=== PATIENT | male | born 1960 | race Caucasian/White ===

== ENCOUNTER 2017-05-05 14:00 | Inpatient (IN) | payer MEDICAID ==
[~2017-05-05] VITALS: Ht 170.2 cm; Wt 89.5 kg
[~2017-05-05 14:00] MED LIST: ALBU8.5H5 INH; ASPI-496 PO; ATOR40TA PO; ATOR40TA78 PO; CARV12.52 PO; CARV3.1212 PO; CARV3.122 PO; CARV6.252 PO; CEFD300C37 PO; DIGO125T PO; ENOX80SY5 SQ; FERR325T18 PO; FURO-93 PO; FURO40TA6 PO; GLIM1TAB2 PO; HYDR-3237 PO; LEVO25TA2 PO; LEVO50TA5 PO; LISI-167 PO; LISI2.5T PO; METF10002 PO; NITR0.4T SL; ONDA4TAB10 PO; POTA10TA5 PO; POTASSIUM CHLORIDE PO; PRED5TAB PO; SIMV20TA PO; SPIR25TA3 PO; TICA90TA PO; WARF10TA6 PO-COUM; WARF1TAB PO; WARF2.5T PO; WARF2TAB7 PO; WARF3TAB PO
[2017-05-05 14:29] LABS: HEMATOCRIT 34.4 % (39.2-51.8); HEMOGLOBIN 11.3 g/dL (13.7-18.0); WHITE BLOOD COUNT 9.1 x10^3/uL (3.4-10)
[2017-05-05] MEDS ORDERED: ASPIRIN 81 MG TABLET CHEW PO ONE (14:30)
[2017-05-05] MEDS ORDERED: SODIUM CHLORIDE FLUSH 10ML SYR IVF ONE ×2 (14:30→15:00)
[2017-05-05 14:43] LABS: BLOOD UREA NITROGEN 24 mg/dL (7-18)
[2017-05-05 14:52] LABS: ASPARTATE AMINO TRANSFERASE 1501 U/L (15-37); IS PT STATUS REG ER OR PRE ER? YES
[2017-05-05] MEDS ORDERED: NITROGLYCERIN SINGLE TAB 0.4 MG SL PRN (15:00)
[2017-05-05] MEDS ORDERED: MORPHINE SULFATE 4 MG/ML, 1ML IVPush PRN (15:00)
[2017-05-05] MEDS ORDERED: NITROGLYCERIN SINGLE TAB 0.4 MG SL ONE (15:12)
[2017-05-05] MEDS ORDERED: ASPIRIN 81 MG TABLET CHEW ONE (15:12)
[2017-05-05] MEDS ORDERED: MORPHINE SULFATE 4 MG/ML, 1ML ONE (15:13)
[2017-05-05] MEDS ORDERED: OMNIPAQUE 350 MG/ML, 100ML BOTTLE ONE (15:51)
[2017-05-05] MEDS ORDERED: LORazepam 1MG TABLET PO PRN (19:30)
[2017-05-05] MEDS ORDERED: POLYETHYLENE GLYCOL 17 GM PACKET PO PRN (19:30)
[2017-05-05] MEDS ORDERED: morphine SULFATE 10 MG/ML, 1ML IVPush PRN (19:30)
[2017-05-05] MEDS ORDERED: DOCUSATE 100 MG CAPSULE PO PRN (19:30)
[2017-05-05] MEDS ORDERED: ENOXAPARIN 40 MG/0.4 ML SQ SCH (19:30)
[2017-05-05] MEDS ORDERED: GUAIFENESIN/DM 200-20MG, 10ML UDC PO PRN (19:30)
[2017-05-05] MEDS ORDERED: NITROGLYCERIN 0.4 MG BOTTLE (25 TABS) SL SCH (19:30)
[2017-05-05] MEDS ORDERED: ACETAMINOPHEN 325 MG TABLET PO PRN (19:30)
[2017-05-05] MEDS ORDERED: ENOXAPARIN 40 MG/0.4 ML ONE (19:43)
[2017-05-05] MEDS ORDERED: FUROSEMIDE 40 MG/4 ML ONE (19:43)
[2017-05-05] MEDS: FUROSEMIDE 40 MG/4 ML IV SCH (19:45)
[2017-05-05 21:27] VITALS: BP 117/77
[2017-05-05] MEDS: ATORVASTATIN 40 MG TABLET PO SCH (21:56)
[2017-05-05] MEDS: CARVEDILOL 6.25 MG TABLET PO SCH (21:56)
[2017-05-05] MEDS: SODIUM CHLORIDE FLUSH 10ML SYR IVF SCH (21:57)
[2017-05-05] MEDS ORDERED: ALBUTEROL SULFATE 2.5 MG/3 ML NPPB PRN (22:30)
[2017-05-06] MEDS: INSULIN ASPART 100 UNITS/ML, PEN SQ-INSULIN SCH ×5 (00:06→20:14)
[2017-05-06] MEDS ORDERED: MAGNESIUM SULFATE PMX 2GM/50ML 50 ML IV ONE (00:30)
[2017-05-06 01:29] VITALS: BP 100/70
[2017-05-06 05:20] LABS: ASPARTATE AMINO TRANSFERASE 988 U/L (15-37); BLOOD UREA NITROGEN 28 mg/dL (7-18)
[2017-05-06 05:33] LABS: IS PT STATUS REG ER OR PRE ER? NO
[2017-05-06] MEDS: HYDROcodone/APAP 5/325 TABLET PO PRN ×4 (05:36→18:45)
[2017-05-06] MEDS: FUROSEMIDE 40 MG/4 ML IV SCH ×2 (08:27→16:58)
[2017-05-06 08:29] VITALS: BP 93/67
[2017-05-06] MEDS: SODIUM CHLORIDE FLUSH 10ML SYR IVF SCH ×2 (08:33→20:14)
[2017-05-06] MEDS ORDERED: SPIRONOLACTONE 25 MG TABLET PO SCH (09:00)
[2017-05-06] MEDS: DIGOXIN 0.125 MG TABLET PO SCH (09:28)
[2017-05-06] MEDS: LISINOPRIL 10 MG TABLET PO SCH (09:28)
[2017-05-06] MEDS: LEVOTHYROXINE 50 MCG TABLET PO SCH (09:28)
[2017-05-06] MEDS: CARVEDILOL 6.25 MG TABLET PO SCH ×3 (09:28→20:18)
[2017-05-06] MEDS: ASPIRIN 81 MG TABLET EC PO SCH (09:28)
[2017-05-06] MEDS: SENNA/DOCUSATE TABLET PO SCH (09:30)
[2017-05-06] MEDS ORDERED: [UNRECOGNIZED DRUG - REMARK] MC SCH (12:00)
[2017-05-06] MEDS ORDERED: [UNRECOGNIZED DRUG - REMARK] MC SCH (14:00)
[2017-05-06 14:11] VITALS: BP 91/54
[2017-05-06] MEDS: POTASSIUM CHLORIDE 20 MEQ TAB.ER.PRT PO SCH (16:58)
[2017-05-06] MEDS: ATORVASTATIN 40 MG TABLET PO SCH (20:14)
[2017-05-06 20:32] VITALS: BP 80/42
[2017-05-07] VITALS: BP 92/61
[2017-05-07] MEDS: HYDROcodone/APAP 5/325 TABLET PO PRN ×4 (01:47→22:32)
[2017-05-07 04:39] LABS: HEMATOCRIT 29.3 % (39.2-51.8); HEMOGLOBIN 9.7 g/dL (13.7-18.0)
[2017-05-07 04:50] LABS: BLOOD UREA NITROGEN 39 mg/dL (7-18)
[2017-05-07 04:58] LABS: ASPARTATE AMINO TRANSFERASE 730 U/L (15-37)
[2017-05-07] MEDS: INSULIN ASPART 100 UNITS/ML, PEN SQ-INSULIN SCH ×4 (07:00→22:23)
[2017-05-07] MEDS ORDERED: FUROSEMIDE 40 MG/4 ML IV SCH (07:30)
[2017-05-07 08:00] VITALS: BP 97/63
[2017-05-07] MEDS ORDERED: FUROSEMIDE 20 MG/2 ML IV SCH (09:30)
[2017-05-07] MEDS: SENNA/DOCUSATE TABLET PO SCH (10:13)
[2017-05-07] MEDS: LEVOTHYROXINE 50 MCG TABLET PO SCH (10:13)
[2017-05-07] MEDS: ASPIRIN 81 MG TABLET EC PO SCH (10:13)
[2017-05-07] MEDS: LISINOPRIL 10 MG TABLET PO SCH (10:14)
[2017-05-07] MEDS: DIGOXIN 0.125 MG TABLET PO SCH (10:14)
[2017-05-07] MEDS: CARVEDILOL 6.25 MG TABLET PO SCH ×2 (10:14→22:22)
[2017-05-07] MEDS: SODIUM CHLORIDE FLUSH 10ML SYR IVF SCH ×2 (10:18→22:23)
[2017-05-07 14:12] VITALS: BP 94/66
[2017-05-07] MEDS: POTASSIUM CHLORIDE 20 MEQ TAB.ER.PRT PO SCH (16:53)
[2017-05-07] MEDS: WARFARIN 3 MG TABLET PO-COUM SCH (16:53)
[2017-05-07 20:00] VITALS: BP 88/60
[2017-05-07] MEDS: ATORVASTATIN 40 MG TABLET PO SCH (22:23)
[2017-05-08 02:00] VITALS: BP 98/65
[2017-05-08] MEDS: HYDROcodone/APAP 5/325 TABLET PO PRN ×3 (05:17→16:30)
[2017-05-08 05:34] LABS: BLOOD UREA NITROGEN 49 mg/dL (7-18)
[2017-05-08 05:45] LABS: ASPARTATE AMINO TRANSFERASE 494 U/L (15-37)
[2017-05-08] MEDS: INSULIN ASPART 100 UNITS/ML, PEN SQ-INSULIN SCH ×4 (07:00→20:14)
[2017-05-08 07:26] VITALS: BP 105/68
[2017-05-08] MEDS ORDERED: FUROSEMIDE 20 MG TABLET PO SCH (07:30)
[2017-05-08] MEDS: LEVOTHYROXINE 50 MCG TABLET PO SCH (07:50)
[2017-05-08] MEDS: LISINOPRIL 10 MG TABLET PO SCH (07:50)
[2017-05-08] MEDS: DIGOXIN 0.125 MG TABLET PO SCH (07:51)
[2017-05-08] MEDS: ASPIRIN 81 MG TABLET EC PO SCH (07:51)
[2017-05-08] MEDS: CARVEDILOL 6.25 MG TABLET PO SCH ×2 (07:51→20:14)
[2017-05-08] MEDS: SODIUM CHLORIDE FLUSH 10ML SYR IVF SCH ×2 (07:51→20:14)
[2017-05-08] MEDS: SENNA/DOCUSATE TABLET PO SCH (07:52)
[2017-05-08] MEDS ORDERED: SODIUM CHLORIDE 0.9%, 500ML IV ONE (09:00)
[2017-05-08 14:34] VITALS: BP 95/60
[2017-05-08] MEDS: POTASSIUM CHLORIDE 20 MEQ TAB.ER.PRT PO SCH (16:30)
[2017-05-08] MEDS: WARFARIN 3 MG TABLET PO-COUM SCH (16:31)
[2017-05-08] MEDS: ONDANSETRON 2MG/ML, 2ML IVPush PRN (16:38)
[2017-05-08 20:01] VITALS: BP 99/56
[2017-05-08] MEDS: ATORVASTATIN 40 MG TABLET PO SCH (20:14)
[2017-05-09 02:30] VITALS: BP 93/63
[2017-05-09] MEDS: HYDROcodone/APAP 5/325 TABLET PO PRN ×4 (02:32→20:37)
[2017-05-09 05:50] LABS: ASPARTATE AMINO TRANSFERASE 316 U/L (15-37); BLOOD UREA NITROGEN 52 mg/dL (7-18)
[2017-05-09] MEDS: INSULIN ASPART 100 UNITS/ML, PEN SQ-INSULIN SCH ×4 (07:00→20:38)
[2017-05-09 07:55] VITALS: BP 86/61
[2017-05-09] MEDS: SENNA/DOCUSATE TABLET PO SCH (09:00)
[2017-05-09] MEDS: CARVEDILOL 6.25 MG TABLET PO SCH ×2 (09:24→20:37)
[2017-05-09] MEDS: LEVOTHYROXINE 50 MCG TABLET PO SCH (09:25)
[2017-05-09] MEDS: ASPIRIN 81 MG TABLET EC PO SCH (09:25)
[2017-05-09] MEDS: DIGOXIN 0.125 MG TABLET PO SCH (09:25)
[2017-05-09 13:20] VITALS: BP 100/69
[2017-05-09] MEDS ORDERED: NICOTINE 14MG/24 HR PATCH.TD24 TD ONE (15:30)
[2017-05-09] MEDS: DOBUTAMINE/D5W PMX 250 ML IV SCH (17:59)
[2017-05-09] MEDS: SODIUM CHLORIDE FLUSH 10ML SYR IVF SCH ×2 (18:00→20:37)
[2017-05-09] MEDS ORDERED: WARFARIN 5 MG TABLET PO-COUM ONE (18:00)
[2017-05-09 19:50] VITALS: BP 117/79
[2017-05-09] MEDS: ATORVASTATIN 40 MG TABLET PO SCH (20:37)
[2017-05-10 02:23] VITALS: BP 91/64
[2017-05-10] MEDS: HYDROcodone/APAP 5/325 TABLET PO PRN ×5 (03:04→22:00)
[2017-05-10] MEDS: ONDANSETRON 2MG/ML, 2ML IVPush PRN (04:59)
[2017-05-10 05:31] LABS: HEMATOCRIT 32.6 % (39.2-51.8); HEMOGLOBIN 10.9 g/dL (13.7-18.0); WHITE BLOOD COUNT 6.3 x10^3/uL (3.4-10)
[2017-05-10 05:40] LABS: BLOOD UREA NITROGEN 50 mg/dL (7-18)
[2017-05-10 05:57] LABS: TOTAL IRON BINDING CAPACITY 262 mcg/dL (250-450)
[2017-05-10 07:30] VITALS: BP 111/76
[2017-05-10] MEDS: INSULIN ASPART 100 UNITS/ML, PEN SQ-INSULIN SCH ×4 (08:21→22:00)
[2017-05-10] MEDS: SODIUM CHLORIDE FLUSH 10ML SYR IVF SCH ×2 (08:22→22:00)
[2017-05-10] MEDS: CARVEDILOL 6.25 MG TABLET PO SCH (08:22)
[2017-05-10] MEDS: ASPIRIN 81 MG TABLET EC PO SCH (08:23)
[2017-05-10] MEDS: LEVOTHYROXINE 50 MCG TABLET PO SCH (08:23)
[2017-05-10] MEDS: SENNA/DOCUSATE TABLET PO SCH (08:23)
[2017-05-10 09:57] VITALS: BP 88/58
[2017-05-10] MEDS: FUROSEMIDE 20 MG/2 ML IV SCH ×2 (10:07→17:27)
[2017-05-10 10:50] VITALS: BP 105/74
[2017-05-10 13:15] VITALS: BP 102/65
[2017-05-10 14:11] LABS: FERRITIN 649.3 ng/mL (26-388)
[2017-05-10] MEDS: NICOTINE 14MG/24 HR PATCH.TD24 TD SCH (17:56)
[2017-05-10] MEDS ORDERED: WARFARIN 5 MG TABLET PO-COUM ONE (18:00)
[2017-05-10 21:55] VITALS: BP 95/62
[2017-05-10] MEDS: ATORVASTATIN 40 MG TABLET PO SCH (21:59)
[2017-05-11 01:20] VITALS: BP 86/56
[2017-05-11] MEDS: FUROSEMIDE 20 MG/2 ML IV SCH ×2 (01:33→07:43)
[2017-05-11] MEDS: HYDROcodone/APAP 5/325 TABLET PO PRN ×4 (02:52→20:11)
[2017-05-11 06:08] LABS: HEMATOCRIT 33.8 % (39.2-51.8); HEMOGLOBIN 11.1 g/dL (13.7-18.0); WHITE BLOOD COUNT 6.5 x10^3/uL (3.4-10)
[2017-05-11 06:18] LABS: ASPARTATE AMINO TRANSFERASE 154 U/L (15-37); BLOOD UREA NITROGEN 45 mg/dL (7-18)
[2017-05-11 06:57] VITALS: BP 101/67
[2017-05-11] MEDS: INSULIN ASPART 100 UNITS/ML, PEN SQ-INSULIN SCH ×4 (07:00→20:01)
[2017-05-11] MEDS: SODIUM CHLORIDE FLUSH 10ML SYR IVF SCH ×2 (07:43→20:11)
[2017-05-11] MEDS: ASPIRIN 81 MG TABLET EC PO SCH (07:43)
[2017-05-11] MEDS: DOBUTAMINE/D5W PMX 250 ML IV SCH (07:44)
[2017-05-11] MEDS: LEVOTHYROXINE 50 MCG TABLET PO SCH (07:44)
[2017-05-11] MEDS: SENNA/DOCUSATE TABLET PO SCH (07:44)
[2017-05-11 14:04] VITALS: BP 119/77
[2017-05-11] MEDS ORDERED: FUROSEMIDE 40 MG TABLET PO SCH (17:00)
[2017-05-11] MEDS: CARVEDILOL 3.125 MG TABLET PO SCH (17:15)
[2017-05-11] MEDS: NICOTINE 14MG/24 HR PATCH.TD24 TD SCH (17:15)
[2017-05-11] MEDS ORDERED: WARFARIN 5 MG TABLET PO-COUM ONE (18:00)
[2017-05-11 19:29] VITALS: BP 110/77
[2017-05-11] MEDS: ATORVASTATIN 40 MG TABLET PO SCH (20:11)
[2017-05-12 01:37] VITALS: BP 123/80
[2017-05-12] MEDS: HYDROcodone/APAP 5/325 TABLET PO PRN ×4 (03:37→17:08)
[2017-05-12 06:06] LABS: HEMATOCRIT 33.9 % (39.2-51.8); HEMOGLOBIN 11.4 g/dL (13.7-18.0); WHITE BLOOD COUNT 6.8 x10^3/uL (3.4-10)
[2017-05-12 06:27] LABS: ASPARTATE AMINO TRANSFERASE 110 U/L (15-37); BLOOD UREA NITROGEN 34 mg/dL (7-18)
[2017-05-12] MEDS: ASPIRIN 81 MG TABLET EC PO SCH (07:47)
[2017-05-12] MEDS: LEVOTHYROXINE 50 MCG TABLET PO SCH (07:47)
[2017-05-12] MEDS: CARVEDILOL 3.125 MG TABLET PO SCH ×2 (07:48→17:07)
[2017-05-12] MEDS: FUROSEMIDE 40 MG TABLET PO SCH ×2 (07:48→17:07)
[2017-05-12] MEDS: INSULIN ASPART 100 UNITS/ML, PEN SQ-INSULIN SCH ×4 (07:50→20:08)
[2017-05-12] MEDS: SODIUM CHLORIDE FLUSH 10ML SYR IVF SCH ×2 (07:51→20:07)
[2017-05-12 08:12] VITALS: BP 107/78
[2017-05-12] MEDS: SENNA/DOCUSATE TABLET PO SCH (09:00)
[2017-05-12] MEDS: LISINOPRIL 5 MG TABLET PO SCH (10:01)
[2017-05-12] MEDS: NICOTINE 14MG/24 HR PATCH.TD24 TD SCH (12:23)
[2017-05-12 15:01] VITALS: BP 100/68
[2017-05-12] MEDS ORDERED: WARFARIN 3 MG TABLET PO-COUM ONE (18:00)
[2017-05-12 19:22] VITALS: BP 109/75
[2017-05-12] MEDS: ATORVASTATIN 40 MG TABLET PO SCH (20:07)
[2017-05-13] MEDS: HYDROcodone/APAP 5/325 TABLET PO PRN ×3 (00:26→12:34)
[2017-05-13 00:44] VITALS: BP 107/70
[2017-05-13 05:37] VITALS: BP 116/80
[2017-05-13] MEDS: CARVEDILOL 3.125 MG TABLET PO SCH (05:40)
[2017-05-13 05:54] LABS: HEMATOCRIT 37.9 % (39.2-51.8); HEMOGLOBIN 12.4 g/dL (13.7-18.0); WHITE BLOOD COUNT 6.9 x10^3/uL (3.4-10)
[2017-05-13 06:16] LABS: ASPARTATE AMINO TRANSFERASE 86 U/L (15-37); BLOOD UREA NITROGEN 26 mg/dL (7-18)
[2017-05-13] MEDS: INSULIN ASPART 100 UNITS/ML, PEN SQ-INSULIN SCH ×3 (07:00→16:06)
[2017-05-13 07:35] VITALS: BP 106/72
[2017-05-13] MEDS ORDERED: HOLD COUMADIN MC PRN (08:00)
[2017-05-13] MEDS: FUROSEMIDE 40 MG TABLET PO SCH ×2 (08:26→16:07)
[2017-05-13] MEDS: LISINOPRIL 5 MG TABLET PO SCH (08:27)
[2017-05-13] MEDS: SENNA/DOCUSATE TABLET PO SCH (08:27)
[2017-05-13] MEDS: ASPIRIN 81 MG TABLET EC PO SCH (08:27)
[2017-05-13] MEDS: LEVOTHYROXINE 50 MCG TABLET PO SCH (08:28)
[2017-05-13] MEDS: SODIUM CHLORIDE FLUSH 10ML SYR IVF SCH (08:28)
[2017-05-13] MEDS: NICOTINE 14MG/24 HR PATCH.TD24 TD SCH (12:34)
[2017-05-13 12:54] VITALS: BP 106/73
[2017-05-13] MEDS ORDERED: CARV3.1212 PO (13:22)
[2017-05-13] MEDS ORDERED: LISI5TAB7 PO (13:22)
[2017-05-13] MEDS ORDERED: FURO40TA6 PO (13:22)
[2017-05-13] MEDS ORDERED: GLIP5TAB10 PO (13:22)
== END 2017-05-13 16:15 | disposition home or self-care (01) | DRG 292 ==
LOC: ED 16:48 → SUATTDRO 19:03 → EDIP 19:15 → 5SO 21:06
PROVIDERS: ADMIT Family Medicine; ATTEND Family Medicine
DX: I11.0 Hypertensive heart disease with heart failure (principal); E87.1 Hypo-osmolality and hyponatremia; N17.9 Acute kidney failure, unspecified; D68.69 Other thrombophilia; E86.1 Hypovolemia; E11.65 Type 2 diabetes mellitus with hyperglycemia; K76.1 Chronic passive congestion of liver; I25.10 Atherosclerotic heart disease of native coronary artery without angina pectoris; E78.5 Hyperlipidemia, unspecified; E03.9 Hypothyroidism, unspecified; Z66 Do not resuscitate; D64.9 Anemia, unspecified; I25.5 Ischemic cardiomyopathy; I50.43 Acute on chronic combined systolic (congestive) and diastolic (congestive) heart failure; E66.9 Obesity, unspecified; J44.9 Chronic obstructive pulmonary disease, unspecified; T50.2X5A Adverse effect of carbonic-anhydrase inhibitors, benzothiadiazides and other diuretics, initial encounter; Y92.89 Other specified places as the place of occurrence of the external cause; Z79.01 Long term (current) use of anticoagulants; Z79.899 Other long term (current) drug therapy; Z80.9 Family history of malignant neoplasm, unspecified; Z86.711 Personal history of pulmonary embolism; Z87.891 Personal history of nicotine dependence; Z91.19 Patient's noncompliance with other medical treatment and regimen; Z95.5 Presence of coronary angioplasty implant and graft; Z95.810 Presence of automatic (implantable) cardiac defibrillator; Z68.30 Body mass index [BMI] 30.0-30.9, adult
CPT/HCPCS: 36415; 71010; 71275; 76700; 80048; 80053; 80162; 82533; 82570; 82728; 82962; 83036; 83540; 83550; 83735; 83880; 83930; 83935; 84100; 84300; 84439; 84443; 84481; 84484; 85025; 85045; 85610; 85730; 86704; 86706; 86708; 86803; 87340; 93005; 93306; 93970; 96372; 96374; J1650; J1815; J1940; J2405; Q9967; J1250; J3475; J7040

== ENCOUNTER 2017-05-18 03:26 | Emergency (ER) | payer MEDICAID ==
[~2017-05-18] VITALS: Ht 170.2 cm; Wt 82.0 kg
[~2017-05-18 03:26] MED LIST changes: +GLIP5TAB10 PO; +LISI5TAB7 PO
[2017-05-18] MEDS ORDERED: MORPHINE SULFATE 4 MG/ML, 1ML ONE (03:49)
[2017-05-18] MEDS ORDERED: ONDANSETRON 2MG/ML, 2ML ONE (03:49)
[2017-05-18] MEDS ORDERED: LORazepam 2 MG/ML, 1ML ONE (03:50)
[2017-05-18] MEDS ORDERED: LORazepam 2 MG/ML, 1ML IVPush ONE (04:00)
[2017-05-18] MEDS ORDERED: MORPHINE SULFATE 4 MG/ML, 1ML IVPush PRN (04:00)
[2017-05-18] MEDS ORDERED: SODIUM CHLORIDE FLUSH 10ML SYR IVF ONE (04:00)
[2017-05-18] MEDS ORDERED: ONDANSETRON 2MG/ML, 2ML IVPush ONE (04:00)
[2017-05-18 04:09] LABS: HEMATOCRIT 39.7 % (39.2-51.8); HEMOGLOBIN 13.1 g/dL (13.7-18.0); WHITE BLOOD COUNT 12.1 x10^3/uL (3.4-10)
[2017-05-18 04:22] LABS: BLOOD UREA NITROGEN 18 mg/dL (7-18)
[2017-05-18 04:26] LABS: ASPARTATE AMINO TRANSFERASE 39 U/L (15-37)
[2017-05-18] MEDS ORDERED: OMNIPAQUE 350 MG/ML, 100ML BOTTLE ONE (04:48)
[2017-05-18] MEDS ORDERED: MAGNESIUM CITRATE 300ML ORAL SOL PO ONE (05:30)
[2017-05-18 06:19] VITALS: BP 121/80
== END 2017-05-18 06:56 | disposition home or self-care (01) ==
LOC: ED 03:49
DX: K59.00 Constipation, unspecified (principal); E03.9 Hypothyroidism, unspecified; E11.65 Type 2 diabetes mellitus with hyperglycemia; E78.5 Hyperlipidemia, unspecified; I50.9 Heart failure, unspecified; J44.9 Chronic obstructive pulmonary disease, unspecified; I48.91 Unspecified atrial fibrillation; I48.92 Unspecified atrial flutter; I25.10 Atherosclerotic heart disease of native coronary artery without angina pectoris; I11.9 Hypertensive heart disease without heart failure; Z95.5 Presence of coronary angioplasty implant and graft; Z95.0 Presence of cardiac pacemaker
CPT/HCPCS: 36415; 74177; 80053; 83605; 83690; 85025; 96374; 96375; 99285; J2060; J2405; Q9967

== ENCOUNTER 2017-12-07 22:06 | Inpatient (IN) | payer MEDICAID ==
[~2017-12-07] VITALS: Ht 170.2 cm; Wt 88.8 kg
[~2017-12-07 22:06] MED LIST changes: +METF500T4 PO
[2017-12-07] MEDS ORDERED: ONDANSETRON ODT 4 MG ONE (22:21)
[2017-12-07 22:22] LABS: BASOPHILS # (AUTO) 0.04 x10^3/uL (0-0.1); BASOPHILS % (AUTO) 1 % (0-1); EOSINOPHILS # (AUTO) 0.38 x10^3/uL (0-0.4); EOSINOPHILS % (AUTO) 5 % (1-7); LYMPHOCYTES # (AUTO) 2.45 x10^3/uL (1-3.4); LYMPHOCYTES % (AUTO) 29 % (22-44); MD NO; MEAN CORPUSCULAR HEMOGLOBIN 31.1 pg (27.5-34.5); MEAN CORPUSCULAR HGB CONC 34.4 g/dL (33.2-36.2); MEAN CORPUSCULAR VOLUME 90.4 fL (81-97); MEAN PLATELET VOLUME 7.9 fL (7.4-10.4); MONOCYTES # (AUTO) 0.76 x10^3/uL (0.2-0.8); MONOCYTES % (AUTO) 9 % (2-9); NEUTROPHILS # (AUTO) 4.81 x10^3/uL (1.8-6.8); NEUTROPHILS % (AUTO) 57 % (42-75); PLATELET COUNT 268 x10^3/uL (130-400); RED BLOOD COUNT 4.58 x10^6/uL (4.38-5.82); RED CELL DISTRIBUTION WIDTH 14.2 % (9.4-14.8)
[2017-12-07] MEDS ORDERED: MORPHINE SULFATE 4 MG/ML, 1ML ONE ×2 (22:22→22:57)
[2017-12-07 22:28] LABS: INTERNATIONAL NORMALIZED RATIO 0.97 (0.93-1.1)
[2017-12-07] MEDS ORDERED: ONDANSETRON ODT 4 MG PO ONE (22:30)
[2017-12-07] MEDS ORDERED: morphine SULFATE 10 MG/ML, 1ML IVPush ONE ×2 (22:30→23:00)
[2017-12-07] MEDS ORDERED: DIPHENHYDRAMINE 50 MG/ML, 1ML ONE (22:57)
[2017-12-07] MEDS ORDERED: DIPHENHYDRAMINE 50 MG/ML, 1ML IVPush ONE (23:00)
[2017-12-08] MEDS ORDERED: SODIUM CHLORIDE 0.9%, 500ML IVBOLUS ONE ×2 (00:30→02:00)
[2017-12-08] MEDS ORDERED: SODIUM CHLORIDE 0.9% 1,000 ML IV SCH (00:39)
[2017-12-08] MEDS ORDERED: NICOTINE 21 MG/24 HR PATCH.TD24 TD SCH (01:00)
[2017-12-08] MEDS ORDERED: GLUCAGON 1 MG IM PRN (01:00)
[2017-12-08] MEDS ORDERED: ACETAMINOPHEN 325 MG TABLET PO PRN (01:00)
[2017-12-08] MEDS ORDERED: DEXTROSE 50%, 50ML SYRINGE IVPush PRN (01:00)
[2017-12-08] MEDS ORDERED: DEXTROSE 4 GM TAB.CHEW PO PRN (01:00)
[2017-12-08 01:39] LABS: ALBUMIN 3.9 g/dL (3.4-5.0); ANION GAP 8 mmol/L (5-15); CALCIUM 8.8 mg/dL (8.5-10.1); CHLORIDE 99 mmol/L (98-107); CREATININE 0.92 mg/dL (0.7-1.3)
[2017-12-08 01:44] LABS: TROPONIN I < 0.015 ng/mL (0.000-0.045)
[2017-12-08] MEDS ORDERED: HYDR-3245 PO (03:13)
[2017-12-08] MEDS: HYDROcodone/APAP 10/325 MG TABLET PO PRN ×2 (03:35→08:07)
[2017-12-08 03:45] VITALS: BP 113/67
[2017-12-08] MEDS: CARVEDILOL 3.125 MG TABLET PO SCH ×2 (06:04→18:00)
[2017-12-08 07:30] VITALS: BP 92/55
[2017-12-08] MEDS ORDERED: ASPIRIN 325 MG TABLET PO SCH (07:30)
[2017-12-08 07:48] LABS: TROPONIN I < 0.015 ng/mL (0.000-0.045)
[2017-12-08] MEDS ORDERED: FUROSEMIDE 80 MG TABLET PO SCH (08:00)
[2017-12-08] MEDS: INSULIN LISPRO 100 UNITS/ML, PEN SQ-INSULIN SCH ×3 (08:08→16:00)
[2017-12-08] MEDS: FUROSEMIDE 20 MG TABLET PO SCH ×2 (08:17→17:00)
[2017-12-08 08:18] VITALS: BP 90/54
[2017-12-08] MEDS ORDERED: LISINOPRIL 10 MG TABLET PO SCH (09:00)
[2017-12-08] MEDS ORDERED: metFORMIN 500 MG TABLET PO SCH (09:00)
[2017-12-08] MEDS ORDERED: LEVOTHYROXINE 50 MCG TABLET PO SCH (09:00)
[2017-12-08] MEDS ORDERED: SODIUM CHLORIDE FLUSH 10ML SYR IVF SCH (09:00)
[2017-12-08] MEDS ORDERED: REGADENOSON 0.4 MG/5 ML SYRINGE ONE (10:31)
[2017-12-08 13:49] VITALS: BP 95/60
[2017-12-08 14:20] VITALS: BP 94/58
[2017-12-08 14:36] VITALS: BP 95/61
[2017-12-08] MEDS ORDERED: ASPI325T17 PO (15:50)
[2017-12-08] MEDS ORDERED: PNEUMOCOCCAL 23 VACCINE IM-VACC ONE (17:00)
[2017-12-08] MEDS ORDERED: ATORVASTATIN 40 MG TABLET PO SCH (21:00)
== END 2017-12-08 18:16 | disposition home or self-care (01) | DRG 313 ==
LOC: ED 23:59 → SUATTDRO 12-08 00:34 → EDIP 12-08 01:19 → 5SO 12-08 02:51
PROVIDERS: ADMIT Hospitalist; ATTEND Hospitalist
DX: R07.89 Other chest pain (principal); I25.10 Atherosclerotic heart disease of native coronary artery without angina pectoris; I11.0 Hypertensive heart disease with heart failure; E11.65 Type 2 diabetes mellitus with hyperglycemia; I50.82 Biventricular heart failure; I50.42 Chronic combined systolic (congestive) and diastolic (congestive) heart failure; G47.00 Insomnia, unspecified; F17.210 Nicotine dependence, cigarettes, uncomplicated; E78.5 Hyperlipidemia, unspecified; E03.9 Hypothyroidism, unspecified; I25.5 Ischemic cardiomyopathy; I25.2 Old myocardial infarction; I48.91 Unspecified atrial fibrillation; J44.9 Chronic obstructive pulmonary disease, unspecified; Z79.82 Long term (current) use of aspirin; Z80.9 Family history of malignant neoplasm, unspecified; Z82.49 Family history of ischemic heart disease and other diseases of the circulatory system; Z95.0 Presence of cardiac pacemaker; Z86.711 Personal history of pulmonary embolism; Z95.5 Presence of coronary angioplasty implant and graft; Z95.810 Presence of automatic (implantable) cardiac defibrillator; Z23 Encounter for immunization
CPT/HCPCS: 36415; 71045; 78452; 80047; 80048; 82040; 82962; 83735; 83880; 84100; 84484; 85025; 85610; 85730; 90732; 93005; 93017; 96374; 96375; 96376; J2785; Q0162; A9502; C9898; J1200; J2270; J7030; J7040

== ENCOUNTER 2018-02-28 19:59 | Emergency (ER) | payer MEDICAID ==
[~2018-02-28] VITALS: Ht 170.2 cm; Wt 91.4 kg
[~2018-02-28 19:59] MED LIST changes: +ASPI325T17 PO; +HYDR-3245 PO; -METF500T4 PO; +METF500T5 PO; +WARF10TA43 PO-COUM; -WARF10TA6 PO-COUM; -WARF2TAB7 PO; +WARF2TAB99 PO
[2018-02-28] MEDS ORDERED: ASPIRIN 81 MG TABLET CHEW ONE (20:21)
[2018-02-28] MEDS ORDERED: ASPIRIN 81 MG TABLET CHEW PO ONE (20:30)
[2018-02-28 20:36] LABS: BASOPHILS # (AUTO) 0.12 x10^3/uL (0-0.1); BASOPHILS % (AUTO) 2 % (0-1); EOSINOPHILS # (AUTO) 0.39 x10^3/uL (0-0.4); EOSINOPHILS % (AUTO) 5 % (1-7); LYMPHOCYTES # (AUTO) 1.88 x10^3/uL (1-3.4); LYMPHOCYTES % (AUTO) 24 % (22-44); MD NO; MEAN CORPUSCULAR HEMOGLOBIN 30.3 pg (27.5-34.5); MEAN CORPUSCULAR HGB CONC 34.1 g/dL (33.2-36.2); MEAN CORPUSCULAR VOLUME 88.9 fL (81-97); MEAN PLATELET VOLUME 8.4 fL (7.4-10.4); MONOCYTES # (AUTO) 0.68 x10^3/uL (0.2-0.8); MONOCYTES % (AUTO) 9 % (2-9); NEUTROPHILS # (AUTO) 4.65 x10^3/uL (1.8-6.8); NEUTROPHILS % (AUTO) 60 % (42-75); PLATELET COUNT 236 x10^3/uL (130-400); RED BLOOD COUNT 3.79 x10^6/uL (4.38-5.82)
[2018-02-28 20:48] LABS: ALBUMIN 4.4 g/dL (3.4-5.0); ANION GAP 9 mmol/L (5-15); CALCIUM 9.5 mg/dL (8.5-10.1); CHLORIDE 97 mmol/L (98-107); CREATININE 1.47 mg/dL (0.7-1.3)
[2018-02-28 20:51] LABS: TROPONIN I < 0.015 ng/mL (0.000-0.045)
[2018-02-28] MEDS ORDERED: MORPHINE SULFATE 4 MG/ML, 1ML IVPush PRN (21:00)
[2018-02-28] MEDS ORDERED: MORPHINE SULFATE 4 MG/ML, 1ML ONE (21:03)
[2018-02-28] MEDS ORDERED: SODIUM CHLORIDE 0.9% 1,000ML IVBOLUS ONE (23:00)
[2018-02-28] MEDS ORDERED: OMNIPAQUE 350 MG/ML, 100ML BOTTLE ONE (23:04)
[2018-03-01 01:24] VITALS: BP 106/76
== END 2018-03-01 01:27 | disposition home or self-care (01) ==
LOC: ED 21:11
DX: N28.9 Disorder of kidney and ureter, unspecified (principal); R07.2 Precordial pain; R06.00 Dyspnea, unspecified; I25.10 Atherosclerotic heart disease of native coronary artery without angina pectoris; I11.0 Hypertensive heart disease with heart failure; I50.9 Heart failure, unspecified; I48.91 Unspecified atrial fibrillation; E03.9 Hypothyroidism, unspecified; J18.9 Pneumonia, unspecified organism; E78.5 Hyperlipidemia, unspecified; Z86.711 Personal history of pulmonary embolism; J44.9 Chronic obstructive pulmonary disease, unspecified; Z95.818 Presence of other cardiac implants and grafts
CPT/HCPCS: 36415; 71045; 71275; 80048; 82040; 83880; 84484; 85025; 85379; 93005; 96374; 99285; Q9967

== ENCOUNTER 2018-03-09 06:05 | Inpatient (IN) | payer MEDICAID ==
[~2018-03-09] VITALS: Ht 170.2 cm; Wt 89.0 kg
[2018-03-09] MEDS ORDERED: SODIUM CHLORIDE FLUSH 10ML SYR IVF ONE (06:30)
[2018-03-09] MEDS ORDERED: ONDANSETRON 2MG/ML, 2ML IVPush ONE (06:30)
[2018-03-09] MEDS ORDERED: SODIUM CHLORIDE 0.9% 1,000ML IVBOLUS ONE (06:30)
[2018-03-09] MEDS ORDERED: ONDANSETRON 2MG/ML, 2ML ONE (06:42)
[2018-03-09] MEDS ORDERED: MORPHINE SULFATE 4 MG/ML, 1ML ONE ×2 (06:42→08:05)
[2018-03-09] MEDS: MORPHINE SULFATE 4 MG/ML, 1ML IVPush PRN ×2 (06:45→08:08)
[2018-03-09 06:53] LABS: BASOPHILS # (AUTO) 0.02 x10^3/uL (0-0.1); BASOPHILS % (AUTO) 0 % (0-1); EOSINOPHILS # (AUTO) 0.18 x10^3/uL (0-0.4); EOSINOPHILS % (AUTO) 2 % (1-7); LYMPHOCYTES % (AUTO) 13 % (22-44); MD NO; MEAN CORPUSCULAR HEMOGLOBIN 30.6 pg (27.5-34.5); MEAN PLATELET VOLUME 8.5 fL (7.4-10.4); MONOCYTES # (AUTO) 0.52 x10^3/uL (0.2-0.8); MONOCYTES % (AUTO) 6 % (2-9); NEUTROPHILS # (AUTO) 6.77 x10^3/uL (1.8-6.8); NEUTROPHILS % (AUTO) 79 % (42-75); PLATELET COUNT 203 x10^3/uL (130-400); RED BLOOD COUNT 3.84 x10^6/uL (4.38-5.82); RED CELL DISTRIBUTION WIDTH 14.2 % (9.4-14.8)
[2018-03-09] MEDS ORDERED: CLOP75TA52 PO (07:03)
[2018-03-09 07:06] LABS: ALANINE AMINOTRANSFERASE 30 U/L (12-78); ANION GAP 6 mmol/L (5-15); CALCIUM 9.1 mg/dL (8.5-10.1); CHLORIDE 104 mmol/L (98-107)
[2018-03-09 07:08] LABS: ALKALINE PHOSPHATASE 61 U/L (45-117); BILIRUBIN,TOTAL 0.6 mg/dL (0.2-1.0); TOTAL PROTEIN 7.6 g/dL (6.4-8.2)
[2018-03-09 07:13] LABS: TROPONIN I 0.061 ng/mL (0.000-0.045)
[2018-03-09] MEDS ORDERED: ASPIRIN 81 MG TABLET CHEW ONE (07:47)
[2018-03-09] MEDS ORDERED: ASPIRIN 81 MG TABLET CHEW PO ONE (08:00)
[2018-03-09] MEDS ORDERED: OMNIPAQUE 350 MG/ML, 100ML BOTTLE ONE (08:28)
[2018-03-09 09:52] VITALS: BP 92/60
[2018-03-09] MEDS ORDERED: PNEUMOCOCCAL 23 VACCINE IM-VACC ONE (10:30)
[2018-03-09] MEDS: LISINOPRIL 10 MG TABLET PO SCH (11:30)
[2018-03-09] MEDS ORDERED: ONDANSETRON ODT 4 MG PO PRN (11:30)
[2018-03-09] MEDS ORDERED: PROMETHAZINE 25 MG/ML, 1ML IM PRN (11:30)
[2018-03-09] MEDS: ENOXAPARIN 40 MG/0.4 ML SQ SCH (12:04)
[2018-03-09] MEDS: CLOPIDOGREL 75 MG TABLET PO SCH (12:05)
[2018-03-09] MEDS: ONDANSETRON 2MG/ML, 2ML IVPush PRN ×2 (12:05→19:31)
[2018-03-09] MEDS: metFORMIN 500 MG TABLET PO SCH ×2 (12:05→19:32)
[2018-03-09] MEDS: FAMOTIDINE 20 MG TABLET PO SCH ×2 (12:05→19:32)
[2018-03-09] MEDS: NICOTINE 21 MG/24 HR PATCH.TD24 TD SCH (12:05)
[2018-03-09] MEDS: LEVOTHYROXINE 50 MCG TABLET PO SCH (12:05)
[2018-03-09 12:06] VITALS: BP 96/59
[2018-03-09 13:09] LABS: TROPONIN I 0.078 ng/mL (0.000-0.045)
[2018-03-09] MEDS: HYDROcodone/APAP 10/325 MG TABLET PO PRN ×2 (14:30→21:00)
[2018-03-09] MEDS: FUROSEMIDE 40 MG TABLET PO SCH (18:22)
[2018-03-09 18:53] VITALS: BP 106/75
[2018-03-09 19:10] LABS: TROPONIN I 0.087 ng/mL (0.000-0.045)
[2018-03-09] MEDS: ATORVASTATIN 40 MG TABLET PO SCH (19:31)
[2018-03-09] MEDS: CARVEDILOL 3.125 MG TABLET PO SCH (21:01)
[2018-03-10 03:03] VITALS: BP 117/80
[2018-03-10] MEDS: CARVEDILOL 3.125 MG TABLET PO SCH ×2 (04:36→17:50)
[2018-03-10] MEDS: ONDANSETRON 2MG/ML, 2ML IVPush PRN ×2 (04:36→07:33)
[2018-03-10] MEDS: ASPIRIN 325 MG TABLET PO SCH (04:37)
[2018-03-10] MEDS: HYDROcodone/APAP 10/325 MG TABLET PO PRN ×3 (04:37→17:58)
[2018-03-10 04:38] LABS: BASOPHILS # (AUTO) 0.08 x10^3/uL (0-0.1); BASOPHILS % (AUTO) 1 % (0-1); EOSINOPHILS # (AUTO) 0.26 x10^3/uL (0-0.4); EOSINOPHILS % (AUTO) 4 % (1-7); LYMPHOCYTES # (AUTO) 1.66 x10^3/uL (1-3.4); LYMPHOCYTES % (AUTO) 23 % (22-44); MD NO; MEAN CORPUSCULAR HEMOGLOBIN 30.6 pg (27.5-34.5); MEAN CORPUSCULAR HGB CONC 33.5 g/dL (33.2-36.2); MEAN CORPUSCULAR VOLUME 91.4 fL (81-97); MEAN PLATELET VOLUME 8.3 fL (7.4-10.4); MONOCYTES # (AUTO) 0.75 x10^3/uL (0.2-0.8); MONOCYTES % (AUTO) 10 % (2-9); NEUTROPHILS # (AUTO) 4.63 x10^3/uL (1.8-6.8); NEUTROPHILS % (AUTO) 63 % (42-75); PLATELET COUNT 181 x10^3/uL (130-400); RED BLOOD COUNT 3.82 x10^6/uL (4.38-5.82); RED CELL DISTRIBUTION WIDTH 14.1 % (9.4-14.8)
[2018-03-10 04:49] LABS: ANION GAP 7 mmol/L (5-15); CHLORIDE 104 mmol/L (98-107); CREATININE 1.14 mg/dL (0.7-1.3)
[2018-03-10 07:11] VITALS: BP 119/79
[2018-03-10] MEDS: LISINOPRIL 10 MG TABLET PO SCH (07:34)
[2018-03-10] MEDS: CLOPIDOGREL 75 MG TABLET PO SCH (07:34)
[2018-03-10] MEDS: FAMOTIDINE 20 MG TABLET PO SCH (07:34)
[2018-03-10] MEDS: LEVOTHYROXINE 50 MCG TABLET PO SCH (07:35)
[2018-03-10] MEDS: FUROSEMIDE 40 MG TABLET PO SCH ×2 (07:35→17:50)
[2018-03-10] MEDS: metFORMIN 500 MG TABLET PO SCH (07:35)
[2018-03-10] MEDS: ENOXAPARIN 40 MG/0.4 ML SQ SCH (12:00)
[2018-03-10] MEDS: NICOTINE 21 MG/24 HR PATCH.TD24 TD SCH (12:00)
[2018-03-10 12:09] VITALS: BP 98/61
[2018-03-10 12:20] LABS: TROPONIN I 0.037 ng/mL (0.000-0.045)
[2018-03-10 19:23] VITALS: BP 103/71
[2018-03-11] MEDS: ATORVASTATIN 40 MG TABLET PO SCH (00:39)
[2018-03-11] MEDS: FAMOTIDINE 20 MG TABLET PO SCH ×2 (00:39→08:36)
[2018-03-11] MEDS: metFORMIN 500 MG TABLET PO SCH ×2 (00:39→08:34)
[2018-03-11 02:31] VITALS: BP 86/52
[2018-03-11] MEDS: HYDROcodone/APAP 10/325 MG TABLET PO PRN ×2 (04:42→12:12)
[2018-03-11 06:58] VITALS: BP 105/67
[2018-03-11] MEDS: CARVEDILOL 3.125 MG TABLET PO SCH (07:18)
[2018-03-11] MEDS: ASPIRIN 325 MG TABLET PO SCH (07:18)
[2018-03-11] MEDS: LISINOPRIL 10 MG TABLET PO SCH (08:34)
[2018-03-11] MEDS: FUROSEMIDE 40 MG TABLET PO SCH (08:34)
[2018-03-11] MEDS: LEVOTHYROXINE 50 MCG TABLET PO SCH (08:34)
[2018-03-11] MEDS: CLOPIDOGREL 75 MG TABLET PO SCH (08:36)
[2018-03-11] MEDS: ENOXAPARIN 40 MG/0.4 ML SQ SCH (12:00)
[2018-03-11] MEDS: NICOTINE 21 MG/24 HR PATCH.TD24 TD SCH (12:14)
== END 2018-03-11 13:40 | disposition home or self-care (01) | DRG 392 ==
LOC: ED 08:07 → EDIP 08:43 → 5SO 09:50 → 4NOR 03-10 20:10
PROVIDERS: ADMIT Hospitalist; ATTEND Hospitalist
DX: R10.9 Unspecified abdominal pain (principal); I50.42 Chronic combined systolic (congestive) and diastolic (congestive) heart failure; R11.2 Nausea with vomiting, unspecified; R07.89 Other chest pain; I25.10 Atherosclerotic heart disease of native coronary artery without angina pectoris; I25.5 Ischemic cardiomyopathy; Z95.810 Presence of automatic (implantable) cardiac defibrillator; E11.9 Type 2 diabetes mellitus without complications; F17.210 Nicotine dependence, cigarettes, uncomplicated; Z95.5 Presence of coronary angioplasty implant and graft; E05.90 Thyrotoxicosis, unspecified without thyrotoxic crisis or storm; Z82.49 Family history of ischemic heart disease and other diseases of the circulatory system; Z79.01 Long term (current) use of anticoagulants; Z79.899 Other long term (current) drug therapy; Z79.82 Long term (current) use of aspirin; J98.4 Other disorders of lung; E03.9 Hypothyroidism, unspecified; E78.5 Hyperlipidemia, unspecified; I11.0 Hypertensive heart disease with heart failure; I25.2 Old myocardial infarction; I08.3 Combined rheumatic disorders of mitral, aortic and tricuspid valves; I48.91 Unspecified atrial fibrillation; J44.9 Chronic obstructive pulmonary disease, unspecified; Z86.711 Personal history of pulmonary embolism
CPT/HCPCS: 36415; 71045; 74177; 80048; 80053; 83690; 84439; 84443; 84484; 85025; 93005; 93306; 96374; 96375; 99285; J1650; J2405; Q0162; Q9967; J7030

== ENCOUNTER 2018-04-06 11:42 | Inpatient (IN) | payer MEDICAID ==
[~2018-04-06] VITALS: Ht 172.7 cm; Wt 94.0 kg
[~2018-04-06 11:42] MED LIST changes: +CLOP75TA52 PO; -SPIR25TA3 PO; +SPIR25TA5 PO
[2018-04-06] MEDS ORDERED: SODIUM CHLORIDE 0.9% 1,000 ML IV ONE (12:14)
[2018-04-06] MEDS ORDERED: ASPI-496 PO (12:16)
[2018-04-06] MEDS ORDERED: ASPIRIN 81 MG TABLET CHEW ONE (12:28)
[2018-04-06] MEDS ORDERED: ASPIRIN 81 MG TABLET CHEW PO ONE (12:30)
[2018-04-06] MEDS ORDERED: SODIUM CHLORIDE FLUSH 10ML SYR IVF ONE (12:30)
[2018-04-06] MEDS ORDERED: MORPHINE SULFATE 4 MG/ML, 1ML ONE ×3 (12:35→19:43)
[2018-04-06] MEDS: MORPHINE SULFATE 4 MG/ML, 1ML IVPush PRN ×2 (12:37→13:23)
[2018-04-06 12:46] LABS: BASOPHILS # (AUTO) 0.05 x10^3/uL (0-0.1); BASOPHILS % (AUTO) 1 % (0-1); EOSINOPHILS # (AUTO) 0.39 x10^3/uL (0-0.4); EOSINOPHILS % (AUTO) 4 % (1-7); LYMPHOCYTES # (AUTO) 2.12 x10^3/uL (1-3.4); LYMPHOCYTES % (AUTO) 24 % (22-44); MD NO; MEAN CORPUSCULAR HEMOGLOBIN 30.1 pg (27.5-34.5); MEAN CORPUSCULAR HGB CONC 33.4 g/dL (33.2-36.2); MEAN CORPUSCULAR VOLUME 90.2 fL (81-97); MEAN PLATELET VOLUME 8.3 fL (7.4-10.4); MONOCYTES # (AUTO) 0.72 x10^3/uL (0.2-0.8); MONOCYTES % (AUTO) 8 % (2-9); NEUTROPHILS # (AUTO) 5.65 x10^3/uL (1.8-6.8); NEUTROPHILS % (AUTO) 63 % (42-75); PLATELET COUNT 230 x10^3/uL (130-400); RED BLOOD COUNT 4.06 x10^6/uL (4.38-5.82); RED CELL DISTRIBUTION WIDTH 15.1 % (9.4-14.8)
[2018-04-06 12:55] LABS: INTERNATIONAL NORMALIZED RATIO 1.03 (0.93-1.1); PROTHROMBIN TIME 10.6 Seconds (9.6-11.5)
[2018-04-06 12:57] LABS: ALANINE AMINOTRANSFERASE 22 U/L (12-78); ALBUMIN 4.3 g/dL (3.4-5.0); ANION GAP 8 mmol/L (5-15); CALCIUM 9.4 mg/dL (8.5-10.1); CHLORIDE 105 mmol/L (98-107)
[2018-04-06 13:02] LABS: ALKALINE PHOSPHATASE 64 U/L (45-117); BILIRUBIN,TOTAL 0.8 mg/dL (0.2-1.0); CREATININE 0.83 mg/dL (0.7-1.3); TOTAL PROTEIN 8.3 g/dL (6.4-8.2); TROPONIN I < 0.015 ng/mL (0.000-0.045)
[2018-04-06] MEDS ORDERED: FENTANYL PF 100 MCG/2ML ONE ×2 (13:22→14:48)
[2018-04-06] MEDS ORDERED: TICAGRELOR 90 MG TABLET ONE (13:23)
[2018-04-06] MEDS ORDERED: HEPARIN 1,000 UNITS/ML, 10ML ONE (13:23)
[2018-04-06] MEDS ORDERED: MIDAZOLAM 1 MG/ML, 5ML ONE ×2 (13:23→14:48)
[2018-04-06] MEDS ORDERED: VERAPAMIL 2.5 MG/ML, 2ML ONE (13:23)
[2018-04-06] MEDS ORDERED: BIVALIRUDIN 250 MG ONE ×2 (13:23→15:02)
[2018-04-06] MEDS ORDERED: LIDOCAINE-MPF 2%, 2ML ONE (13:48)
[2018-04-06] MEDS ORDERED: ONDANSETRON 2MG/ML, 2ML IVPush PRN (14:30)
[2018-04-06] MEDS ORDERED: morphine SULFATE 10 MG/ML, 1ML IVPush PRN (14:30)
[2018-04-06] MEDS ORDERED: SODIUM CHLORIDE 0.9% 500 ML IV PRN (16:02)
[2018-04-06] MEDS ORDERED: BIVALIRUDIN 250 MG in DEXTROSE 5% 50 ML IV SCH (16:08)
[2018-04-06] MEDS ORDERED: morphine SULFATE 10 MG/ML, 1ML IV PRN (16:30)
[2018-04-06] MEDS ORDERED: ZOLPIDEM 5MG TABLET PO PRN (16:30)
[2018-04-06 16:50] LABS: ANION GAP 7 mmol/L (5-15); CHLORIDE 105 mmol/L (98-107); CREATININE 0.81 mg/dL (0.7-1.3)
[2018-04-06 16:54] LABS: TROPONIN I < 0.015 ng/mL (0.000-0.045)
[2018-04-06] MEDS ORDERED: HEPARIN 25,000 UNITS/500ML PMX 500 ML IV SCH (17:00)
[2018-04-06] MEDS ORDERED: HEPARIN 25,000 UNITS in DEXTROSE 10% 495 ML IV SCH (17:00)
[2018-04-06] MEDS: HYDROcodone/APAP 10/325 MG TABLET PO PRN (18:37)
[2018-04-06] MEDS: INSULIN LISPRO 100 UNITS/ML, PEN SQ-INSULIN SCH ×2 (19:32→22:30)
[2018-04-06 21:00] VITALS: BP 110/75
[2018-04-06] MEDS: TICAGRELOR 90 MG TABLET PO SCH (21:57)
[2018-04-07] MEDS: morphine SULFATE 10 MG/ML, 1ML IV PRN ×3 (01:05→15:44)
[2018-04-07] MEDS: INSULIN LISPRO 100 UNITS/ML, PEN SQ-INSULIN SCH ×6 (02:30→20:18)
[2018-04-07 04:00] VITALS: BP 102/66
[2018-04-07 04:18] LABS: BASOPHILS # (AUTO) 0.07 x10^3/uL (0-0.1); BASOPHILS % (AUTO) 1 % (0-1); EOSINOPHILS # (AUTO) 0.28 x10^3/uL (0-0.4); EOSINOPHILS % (AUTO) 4 % (1-7); LYMPHOCYTES # (AUTO) 1.48 x10^3/uL (1-3.4); LYMPHOCYTES % (AUTO) 20 % (22-44); MD NO; MEAN CORPUSCULAR HEMOGLOBIN 31.1 pg (27.5-34.5); MEAN CORPUSCULAR HGB CONC 34.4 g/dL (33.2-36.2); MEAN CORPUSCULAR VOLUME 90.4 fL (81-97); MEAN PLATELET VOLUME 8.1 fL (7.4-10.4); MONOCYTES # (AUTO) 0.73 x10^3/uL (0.2-0.8); MONOCYTES % (AUTO) 10 % (2-9); NEUTROPHILS # (AUTO) 5.05 x10^3/uL (1.8-6.8); NEUTROPHILS % (AUTO) 66 % (42-75); PLATELET COUNT 175 x10^3/uL (130-400); RED BLOOD COUNT 3.34 x10^6/uL (4.38-5.82); RED CELL DISTRIBUTION WIDTH 14.9 % (9.4-14.8)
[2018-04-07 04:33] LABS: ALBUMIN 3.5 g/dL (3.4-5.0); ANION GAP 8 mmol/L (5-15); CALCIUM 8.2 mg/dL (8.5-10.1); CHLORIDE 105 mmol/L (98-107); CREATININE 0.71 mg/dL (0.7-1.3)
[2018-04-07 04:48] LABS: TROPONIN I 0.271 ng/mL (0.000-0.045)
[2018-04-07] MEDS: HYDROcodone/APAP 10/325 MG TABLET PO PRN ×2 (07:08→20:18)
[2018-04-07] MEDS: ASPIRIN 81 MG TABLET EC PO SCH (08:15)
[2018-04-07] MEDS: TICAGRELOR 90 MG TABLET PO SCH ×2 (08:15→20:18)
[2018-04-07] MEDS ORDERED: LEVOTHYROXINE 50 MCG TABLET PO SCH (09:00)
[2018-04-07] MEDS ORDERED: FENTANYL PF 100 MCG/2ML ONE (09:38)
[2018-04-07] MEDS ORDERED: MIDAZOLAM 1 MG/ML, 5ML ONE (09:38)
[2018-04-07] MEDS ORDERED: LEVOTHYROXINE 50 MCG TABLET PO ONE (15:00)
[2018-04-07] MEDS ORDERED: HEPARIN 25,000 UNITS/500ML PMX 500 ML IV SCH (17:00)
[2018-04-07] MEDS: ATORVASTATIN 80 MG TABLET PO SCH (20:18)
[2018-04-08] MEDS: INSULIN LISPRO 100 UNITS/ML, PEN SQ-INSULIN SCH ×6 (00:36→21:04)
[2018-04-08] MEDS: LEVOTHYROXINE 50 MCG TABLET PO SCH (04:53)
[2018-04-08] MEDS: HYDROcodone/APAP 10/325 MG TABLET PO PRN ×2 (04:53→17:14)
[2018-04-08 05:15] VITALS: BP 110/61
[2018-04-08 05:27] LABS: ALBUMIN 3.3 g/dL (3.4-5.0); ANION GAP 8 mmol/L (5-15); CALCIUM 8.4 mg/dL (8.5-10.1); CHLORIDE 107 mmol/L (98-107)
[2018-04-08 05:32] LABS: ALANINE AMINOTRANSFERASE 20 U/L (12-78); ALKALINE PHOSPHATASE 48 U/L (45-117); BASOPHILS # (AUTO) 0.03 x10^3/uL (0-0.1); BASOPHILS % (AUTO) 0 % (0-1); BILIRUBIN,TOTAL 1.8 mg/dL (0.2-1.0); CREATININE 0.79 mg/dL (0.7-1.3); EOSINOPHILS # (AUTO) 0.23 x10^3/uL (0-0.4); EOSINOPHILS % (AUTO) 3 % (1-7); LYMPHOCYTES # (AUTO) 0.94 x10^3/uL (1-3.4); LYMPHOCYTES % (AUTO) 12 % (22-44); MD NO; MEAN CORPUSCULAR HEMOGLOBIN 31.6 pg (27.5-34.5); MEAN CORPUSCULAR HGB CONC 34.5 g/dL (33.2-36.2); MEAN CORPUSCULAR VOLUME 91.5 fL (81-97); MEAN PLATELET VOLUME 8.2 fL (7.4-10.4); MONOCYTES # (AUTO) 0.85 x10^3/uL (0.2-0.8); MONOCYTES % (AUTO) 11 % (2-9); NEUTROPHILS # (AUTO) 5.79 x10^3/uL (1.8-6.8); NEUTROPHILS % (AUTO) 74 % (42-75); PLATELET COUNT 168 x10^3/uL (130-400); RED BLOOD COUNT 3.24 x10^6/uL (4.38-5.82); TOTAL PROTEIN 6.7 g/dL (6.4-8.2)
[2018-04-08] MEDS ORDERED: LEVOTHYROXINE 50 MCG TABLET PO SCH (06:00)
[2018-04-08] MEDS: TICAGRELOR 90 MG TABLET PO SCH ×2 (08:05→21:01)
[2018-04-08] MEDS: ASPIRIN 81 MG TABLET EC PO SCH (08:06)
[2018-04-08] MEDS: ACETAMINOPHEN 325 MG TABLET PO PRN (09:03)
[2018-04-08] MEDS ORDERED: KETOROLAC 30 MG/1 ML IM ONE (12:00)
[2018-04-08 19:50] VITALS: BP 112/70
[2018-04-08] MEDS: ATORVASTATIN 80 MG TABLET PO SCH (21:01)
[2018-04-09 01:07] VITALS: BP 115/73
[2018-04-09 01:24] VITALS: BP 125/81
[2018-04-09] MEDS: ACETAMINOPHEN 325 MG TABLET PO PRN ×4 (01:27→20:02)
[2018-04-09] MEDS: LEVOTHYROXINE 50 MCG TABLET PO SCH (05:06)
[2018-04-09] MEDS: HYDROcodone/APAP 10/325 MG TABLET PO PRN ×2 (05:06→17:11)
[2018-04-09 05:29] LABS: TROPONIN I 0.538 ng/mL (0.000-0.045)
[2018-04-09] MEDS: INSULIN LISPRO 100 UNITS/ML, PEN SQ-INSULIN SCH ×4 (07:00→20:10)
[2018-04-09 07:39] VITALS: BP 113/71
[2018-04-09] MEDS: TICAGRELOR 90 MG TABLET PO SCH ×2 (09:52→20:02)
[2018-04-09] MEDS: ASPIRIN 81 MG TABLET EC PO SCH (09:52)
[2018-04-09] MEDS: LISINOPRIL 5 MG TABLET PO SCH (10:45)
[2018-04-09] MEDS: CARVEDILOL 3.125 MG TABLET PO SCH ×2 (10:45→20:02)
[2018-04-09 12:20] VITALS: BP 125/80
[2018-04-09] MEDS: morphine SULFATE 10 MG/ML, 1ML IV PRN (12:28)
[2018-04-09 19:15] VITALS: BP 112/71
[2018-04-09] MEDS: ATORVASTATIN 80 MG TABLET PO SCH (20:02)
[2018-04-10 02:19] VITALS: BP 101/63
[2018-04-10] MEDS: LEVOTHYROXINE 50 MCG TABLET PO SCH (05:36)
[2018-04-10] MEDS: CARVEDILOL 3.125 MG TABLET PO SCH (05:37)
[2018-04-10] MEDS: HYDROcodone/APAP 10/325 MG TABLET PO PRN (05:37)
[2018-04-10 05:38] VITALS: BP 114/73
[2018-04-10] MEDS: INSULIN LISPRO 100 UNITS/ML, PEN SQ-INSULIN SCH ×2 (07:00→12:53)
[2018-04-10 07:29] VITALS: BP 104/62
[2018-04-10] MEDS: TICAGRELOR 90 MG TABLET PO SCH (08:30)
[2018-04-10] MEDS: ASPIRIN 81 MG TABLET EC PO SCH (08:30)
[2018-04-10] MEDS: LISINOPRIL 5 MG TABLET PO SCH (08:30)
[2018-04-10] MEDS ORDERED: LISI5TAB7 PO (11:19)
[2018-04-10] MEDS ORDERED: TICA90TA PO (11:19)
[2018-04-10] MEDS ORDERED: ATOR-2 PO (11:19)
[2018-04-10] MEDS ORDERED: SPIR25TA PO (13:08)
[2018-04-10 13:12] VITALS: BP 121/77
[2018-04-10] MEDS ORDERED: LEVO50TA5 PO (13:18)
== END 2018-04-10 15:21 | disposition home or self-care (01) | DRG 215 ==
LOC: ED 13:04 → EDIP 13:05 → ED 13:46 → CSU 15:09 → 5SO 04-08 19:27 → DCLOUNGE 04-10 15:00
PROVIDERS: ADMIT Hospitalist; ATTEND Hospitalist
PROC: 02703FZ Dilation of Coronary Artery, One Artery with Three Intraluminal Devices, Percutaneous Approach (ICD-10-PCS; principal; 2018-04-06)
PROC: 02HA3RZ Insertion of Short-term External Heart Assist System into Heart, Percutaneous Approach (ICD-10-PCS; 2018-04-06)
PROC: 027136Z Dilation of Coronary Artery, Two Arteries with Three Drug-eluting Intraluminal Devices, Percutaneous Approach (ICD-10-PCS; 2018-04-06)
PROC: 5A0221D Assistance with Cardiac Output using Impeller Pump, Continuous (ICD-10-PCS; 2018-04-06)
PROC: 4A023N7 Measurement of Cardiac Sampling and Pressure, Left Heart, Percutaneous Approach (ICD-10-PCS; 2018-04-06)
PROC: B2111ZZ Fluoroscopy of Multiple Coronary Arteries using Low Osmolar Contrast (ICD-10-PCS; 2018-04-06)
PROC: B2151ZZ Fluoroscopy of Left Heart using Low Osmolar Contrast (ICD-10-PCS; 2018-04-06)
PROC: 02PA3RZ Removal of Short-term External Heart Assist System from Heart, Percutaneous Approach (ICD-10-PCS; 2018-04-07)
DX: T82.855A Stenosis of coronary artery stent, initial encounter (principal); R57.0 Cardiogenic shock; I25.42 Coronary artery dissection; I24.9 Acute ischemic heart disease, unspecified; I50.42 Chronic combined systolic (congestive) and diastolic (congestive) heart failure; Y83.1 Surgical operation with implant of artificial internal device as the cause of abnormal reaction of the patient, or of later complication, without mention of misadventure at the time of the procedure; Z76.5 Malingerer [conscious simulation]; J44.9 Chronic obstructive pulmonary disease, unspecified; Z79.82 Long term (current) use of aspirin; E03.9 Hypothyroidism, unspecified; E11.9 Type 2 diabetes mellitus without complications; E78.5 Hyperlipidemia, unspecified; F17.200 Nicotine dependence, unspecified, uncomplicated; G89.29 Other chronic pain; I11.0 Hypertensive heart disease with heart failure; I25.119 Atherosclerotic heart disease of native coronary artery with unspecified angina pectoris; I25.2 Old myocardial infarction; I25.5 Ischemic cardiomyopathy; I48.91 Unspecified atrial fibrillation; Z86.711 Personal history of pulmonary embolism; Z95.810 Presence of automatic (implantable) cardiac defibrillator; Z91.19 Patient's noncompliance with other medical treatment and regimen; Z87.01 Personal history of pneumonia (recurrent); Z82.49 Family history of ischemic heart disease and other diseases of the circulatory system; E05.90 Thyrotoxicosis, unspecified without thyrotoxic crisis or storm; Z95.5 Presence of coronary angioplasty implant and graft
CPT/HCPCS: 33990; 36415; 73030; 93458; 99285; C9600; 71045; 80048; 80053; 82040; 82962; 83690; 83735; 83880; 84100; 84443; 84484; 85018; 85025; 85347; 85610; 85730; 87081; 93005; 99156; 99157; C1769; C1876; C1894; J0583; J1644; J1885; J2250; J2405; J3010; J3490; C1725; C1757; C1874; C1887; J1815; J2270; J7030; Q9967

== ENCOUNTER 2018-04-11 06:06 | Observation (INO) | payer MEDICAID ==
[~2018-04-11] VITALS: Ht 171.4 cm; Wt 86.9 kg
[~2018-04-11 06:06] MED LIST changes: +ATOR-2 PO; +SPIR25TA PO
[2018-04-11] MEDS ORDERED: SODIUM CHLORIDE FLUSH 10ML SYR IVF ONE (07:00)
[2018-04-11] MEDS ORDERED: MORPHINE SULFATE 4 MG/ML, 1ML IVPush PRN (07:00)
[2018-04-11 07:06] LABS: ALANINE AMINOTRANSFERASE 19 U/L (12-78); ANION GAP 10 mmol/L (5-15); CALCIUM 9.5 mg/dL (8.5-10.1); CHLORIDE 106 mmol/L (98-107); CREATININE 0.86 mg/dL (0.7-1.3)
[2018-04-11 07:10] LABS: ALKALINE PHOSPHATASE 66 U/L (45-117); BILIRUBIN,TOTAL 1.2 mg/dL (0.2-1.0); TOTAL PROTEIN 8.4 g/dL (6.4-8.2); TROPONIN I 0.099 ng/mL (0.000-0.045)
[2018-04-11] MEDS ORDERED: MORPHINE SULFATE 4 MG/ML, 1ML ONE (07:18)
[2018-04-11 07:28] LABS: BASOPHILS # (AUTO) 0.06 x10^3/uL (0-0.1); BASOPHILS % (AUTO) 1 % (0-1); EOSINOPHILS # (AUTO) 0.47 x10^3/uL (0-0.4); EOSINOPHILS % (AUTO) 5 % (1-7); LYMPHOCYTES # (AUTO) 1.37 x10^3/uL (1-3.4); LYMPHOCYTES % (AUTO) 14 % (22-44); MD NO; MEAN CORPUSCULAR HEMOGLOBIN 30.1 pg (27.5-34.5); MEAN CORPUSCULAR HGB CONC 33.7 g/dL (33.2-36.2); MEAN CORPUSCULAR VOLUME 89.1 fL (81-97); MEAN PLATELET VOLUME 8.3 fL (7.4-10.4); MONOCYTES # (AUTO) 0.88 x10^3/uL (0.2-0.8); MONOCYTES % (AUTO) 9 % (2-9); NEUTROPHILS # (AUTO) 7.32 x10^3/uL (1.8-6.8); NEUTROPHILS % (AUTO) 73 % (42-75); PLATELET COUNT 265 x10^3/uL (130-400); RED BLOOD COUNT 3.94 x10^6/uL (4.38-5.82); RED CELL DISTRIBUTION WIDTH 14.7 % (9.4-14.8)
[2018-04-11 08:34] VITALS: BP 111/72
[2018-04-11] MEDS ORDERED: hydrALAzine 20 MG/ML, 1ML IVPush PRN (10:00)
[2018-04-11] MEDS ORDERED: ONDANSETRON 2MG/ML, 2ML IVPush PRN (10:00)
[2018-04-11] MEDS ORDERED: GUAIFENESIN/COD200MG-20MG/10ML LIQUID PO PRN (10:00)
[2018-04-11] MEDS ORDERED: DOCUSATE 100 MG CAPSULE PO PRN (10:00)
[2018-04-11] MEDS: LEVOTHYROXINE 100 MCG TABLET PO SCH (10:39)
[2018-04-11] MEDS: metFORMIN 500 MG TABLET PO SCH ×2 (10:40→21:10)
[2018-04-11] MEDS: ASPIRIN 81 MG TABLET EC PO SCH (10:40)
[2018-04-11] MEDS: TICAGRELOR 90 MG TABLET PO SCH ×2 (10:40→21:10)
[2018-04-11] MEDS: SPIRONOLACTONE 25 MG TABLET PO SCH (10:40)
[2018-04-11] MEDS: LISINOPRIL 5 MG TABLET PO SCH (10:40)
[2018-04-11] MEDS: HYDROcodone/APAP 10/325 MG TABLET PO PRN ×2 (10:44→21:10)
[2018-04-11 12:03] LABS: TROPONIN I 0.084 ng/mL (0.000-0.045)
[2018-04-11 13:10] VITALS: BP 97/53
[2018-04-11] MEDS: morphine SULFATE 10 MG/ML, 1ML IVPush PRN (16:23)
[2018-04-11] MEDS: CARVEDILOL 3.125 MG TABLET PO SCH (16:23)
[2018-04-11 19:34] LABS: TROPONIN I 0.064 ng/mL (0.000-0.045)
[2018-04-11 20:40] VITALS: BP 102/65
[2018-04-11] MEDS ORDERED: ATORVASTATIN 80 MG TABLET PO SCH (21:00)
[2018-04-12 02:25] VITALS: BP 98/56
[2018-04-12 05:38] LABS: BASOPHILS # (AUTO) 0.07 x10^3/uL (0-0.1); BASOPHILS % (AUTO) 1 % (0-1); EOSINOPHILS # (AUTO) 0.46 x10^3/uL (0-0.4); EOSINOPHILS % (AUTO) 6 % (1-7); LYMPHOCYTES # (AUTO) 1.55 x10^3/uL (1-3.4); LYMPHOCYTES % (AUTO) 20 % (22-44); MD NO; MEAN CORPUSCULAR HEMOGLOBIN 30.6 pg (27.5-34.5); MEAN CORPUSCULAR HGB CONC 33.7 g/dL (33.2-36.2); MEAN CORPUSCULAR VOLUME 90.8 fL (81-97); MEAN PLATELET VOLUME 8.1 fL (7.4-10.4); MONOCYTES # (AUTO) 0.96 x10^3/uL (0.2-0.8); MONOCYTES % (AUTO) 12 % (2-9); NEUTROPHILS # (AUTO) 4.78 x10^3/uL (1.8-6.8); NEUTROPHILS % (AUTO) 61 % (42-75); PLATELET COUNT 273 x10^3/uL (130-400); RED BLOOD COUNT 4.08 x10^6/uL (4.38-5.82); RED CELL DISTRIBUTION WIDTH 15.1 % (9.4-14.8)
[2018-04-12 05:45] LABS: ANION GAP 6 mmol/L (5-15); CALCIUM 9.3 mg/dL (8.5-10.1); CHLORIDE 108 mmol/L (98-107)
[2018-04-12] MEDS: CARVEDILOL 3.125 MG TABLET PO SCH (05:46)
[2018-04-12] MEDS: HYDROcodone/APAP 10/325 MG TABLET PO PRN (05:50)
[2018-04-12 07:46] VITALS: BP 102/67
[2018-04-12] MEDS: TICAGRELOR 90 MG TABLET PO SCH (07:46)
[2018-04-12] MEDS: ASPIRIN 81 MG TABLET EC PO SCH (07:46)
[2018-04-12] MEDS: metFORMIN 500 MG TABLET PO SCH (07:46)
[2018-04-12] MEDS: LEVOTHYROXINE 100 MCG TABLET PO SCH (07:47)
[2018-04-12] MEDS: LISINOPRIL 5 MG TABLET PO SCH (07:47)
[2018-04-12] MEDS: morphine SULFATE 10 MG/ML, 1ML IVPush PRN (08:53)
[2018-04-12] MEDS: SPIRONOLACTONE 25 MG TABLET PO SCH (08:53)
== END 2018-04-12 12:05 | disposition home or self-care (01) ==
LOC: ED 07:03 → EDIP 07:17 → 5SO 08:28 → DCLOUNGE 04-12 11:45
PROVIDERS: ADMIT Internal Medicine; ATTEND Internal Medicine
DX: I25.10 Atherosclerotic heart disease of native coronary artery without angina pectoris (principal); I50.42 Chronic combined systolic (congestive) and diastolic (congestive) heart failure; I11.0 Hypertensive heart disease with heart failure; E03.9 Hypothyroidism, unspecified; E11.9 Type 2 diabetes mellitus without complications; E78.5 Hyperlipidemia, unspecified; F17.200 Nicotine dependence, unspecified, uncomplicated; I25.5 Ischemic cardiomyopathy; I25.2 Old myocardial infarction; I26.99 Other pulmonary embolism without acute cor pulmonale; I48.91 Unspecified atrial fibrillation; J44.9 Chronic obstructive pulmonary disease, unspecified; Z76.5 Malingerer [conscious simulation]; Z79.82 Long term (current) use of aspirin; Z79.899 Other long term (current) drug therapy; Z95.5 Presence of coronary angioplasty implant and graft; Z86.711 Personal history of pulmonary embolism; Z95.810 Presence of automatic (implantable) cardiac defibrillator
CPT/HCPCS: 36415; 71045; 80048; 80053; 83735; 84100; 84484; 85025; 93005; 96374; 96376; 99285; G0378; J2270

== ENCOUNTER 2018-04-16 01:21 | Inpatient (IN) | payer MEDICAID ==
[~2018-04-16] VITALS: Ht 170.2 cm; Wt 90.7 kg
[2018-04-16] MEDS ORDERED: MORPHINE SULFATE 4 MG/ML, 1ML IVPush ONE (01:30)
[2018-04-16] MEDS ORDERED: MORPHINE SULFATE 4 MG/ML, 1ML ONE (01:34)
[2018-04-16 01:41] LABS: BASOPHILS # (AUTO) 0.14 x10^3/uL (0-0.1); BASOPHILS % (AUTO) 1 % (0-1); EOSINOPHILS # (AUTO) 0.49 x10^3/uL (0-0.4); EOSINOPHILS % (AUTO) 5 % (1-7); LYMPHOCYTES # (AUTO) 2.47 x10^3/uL (1-3.4); LYMPHOCYTES % (AUTO) 25 % (22-44); MD NO; MEAN CORPUSCULAR HEMOGLOBIN 30.5 pg (27.5-34.5); MEAN CORPUSCULAR HGB CONC 33.5 g/dL (33.2-36.2); MEAN CORPUSCULAR VOLUME 91.1 fL (81-97); MEAN PLATELET VOLUME 7.8 fL (7.4-10.4); MONOCYTES # (AUTO) 1.26 x10^3/uL (0.2-0.8); MONOCYTES % (AUTO) 13 % (2-9); NEUTROPHILS # (AUTO) 5.67 x10^3/uL (1.8-6.8); NEUTROPHILS % (AUTO) 57 % (42-75); PLATELET COUNT 329 x10^3/uL (130-400); RED BLOOD COUNT 3.94 x10^6/uL (4.38-5.82); RED CELL DISTRIBUTION WIDTH 14.9 % (9.4-14.8)
[2018-04-16 01:49] LABS: INTERNATIONAL NORMALIZED RATIO 1.05 (0.93-1.1); PROTHROMBIN TIME 10.8 Seconds (9.6-11.5)
[2018-04-16] MEDS ORDERED: ZIPRASIDONE 20 MG INJ IM ONE ×2 (01:54→02:00)
[2018-04-16 02:07] LABS: ALANINE AMINOTRANSFERASE 22 U/L (12-78); ALBUMIN 4.6 g/dL (3.4-5.0); ANION GAP 7 mmol/L (5-15); CALCIUM 9.6 mg/dL (8.5-10.1); CHLORIDE 99 mmol/L (98-107); CREATININE 1.36 mg/dL (0.7-1.3)
[2018-04-16 02:11] LABS: ALKALINE PHOSPHATASE 62 U/L (45-117); BILIRUBIN,TOTAL 0.7 mg/dL (0.2-1.0); TOTAL PROTEIN 8.9 g/dL (6.4-8.2); TROPONIN I 0.079 ng/mL (0.000-0.045)
[2018-04-16] MEDS ORDERED: SODIUM CHLORIDE 0.9% 1,000ML IVBOLUS ONE (02:30)
[2018-04-16] MEDS ORDERED: OMNIPAQUE 350 MG/ML, 100ML BOTTLE ONE (02:32)
[2018-04-16] MEDS ORDERED: ACETAMINOPHEN 500 MG TABLET PO ONE (04:00)
[2018-04-16] MEDS ORDERED: ACETAMINOPHEN 500 MG TABLET ONE (04:02)
[2018-04-16] MEDS ORDERED: GUAIFENESIN/COD200MG-20MG/10ML LIQUID PO PRN (04:30)
[2018-04-16] MEDS ORDERED: hydrALAzine 20 MG/ML, 1ML IVPush PRN (04:30)
[2018-04-16] MEDS ORDERED: DOCUSATE 100 MG CAPSULE PO PRN (04:30)
[2018-04-16] MEDS ORDERED: ENOXAPARIN 40 MG/0.4 ML SQ SCH (04:30)
[2018-04-16] MEDS ORDERED: CARVEDILOL 3.125 MG PO SCH (06:00)
[2018-04-16] MEDS ORDERED: HEPARIN 25,000 UNITS/500ML PMX 500 ML ONE (07:12)
[2018-04-16] MEDS ORDERED: HEPARIN 5,000 UNITS/ML, 1ML ONE (07:12)
[2018-04-16] MEDS ORDERED: HEPARIN 25,000 UNITS/500ML PMX 500 ML IV PRN ×3 (07:30→21:30)
[2018-04-16] MEDS ORDERED: HEPARIN 5,000 UNITS/ML, 1ML IV ONE (07:30)
[2018-04-16] MEDS ORDERED: CARVEDILOL 3.125 MG TABLET ONE (07:38)
[2018-04-16] MEDS: INSULIN LISPRO 100 UNITS/ML, PEN SQ-INSULIN SCH ×4 (07:44→20:52)
[2018-04-16] MEDS: LISINOPRIL 5 MG TABLET PO SCH (09:00)
[2018-04-16] MEDS ORDERED: LEVOTHYROXINE 100 MCG TABLET PO SCH (09:00)
[2018-04-16] MEDS: ASPIRIN 81 MG TABLET EC PO SCH (09:18)
[2018-04-16] MEDS: TICAGRELOR 90 MG TABLET PO SCH ×2 (09:18→20:45)
[2018-04-16 09:19] VITALS: BP 102/69
[2018-04-16] MEDS: NITROGLYCERIN OINT 2%, 1GM TP SCH ×3 (10:06→18:35)
[2018-04-16] MEDS: morphine SULFATE 10 MG/ML, 1ML IVPush PRN ×3 (11:07→19:41)
[2018-04-16] MEDS ORDERED: NITROGLYCERIN/D5W PMX 250 ML IV PRN (12:00)
[2018-04-16] MEDS: HYDROcodone/APAP 10/325 MG TABLET PO PRN (13:04)
[2018-04-16 14:38] LABS: ANION GAP 7 mmol/L (5-15); CALCIUM 9.1 mg/dL (8.5-10.1); CHLORIDE 101 mmol/L (98-107); CREATININE 1.16 mg/dL (0.7-1.3)
[2018-04-16 17:05] LABS: AMPHETAMINE SCREEN, URINE Negative (Negative); BARBITURATE SCREEN, URINE Negative (Negative); BENZODIAZEPINE SCREEN, URINE Negative (Negative); CANNABINOID SCREEN, URINE Negative (Negative); COCAINE SCREEN, URINE Negative (Negative); METHADONE SCREEN, URINE Negative (Negative); OPIATE SCREEN, URINE Positive (Negative)
[2018-04-16] MEDS: CARVEDILOL 3.125 MG TABLET PO SCH (18:10)
[2018-04-16] MEDS: ATORVASTATIN 80 MG TABLET PO SCH (20:45)
[2018-04-16] MEDS: NICOTINE 14MG/24 HR PATCH.TD24 TD SCH (20:45)
[2018-04-16] MEDS: ACETAMINOPHEN 325 MG TABLET PO PRN (20:47)
[2018-04-16] MEDS: HEPARIN 5,000 UNITS/ML, 1ML IV PRN (22:16)
[2018-04-17] MEDS: NITROGLYCERIN OINT 2%, 1GM TP SCH ×2 (00:16→09:00)
[2018-04-17] MEDS: HYDROcodone/APAP 10/325 MG TABLET PO PRN ×2 (00:17→16:01)
[2018-04-17 04:15] LABS: BASOPHILS # (AUTO) 0.08 x10^3/uL (0-0.1); BASOPHILS % (AUTO) 1 % (0-1); EOSINOPHILS # (AUTO) 0.09 x10^3/uL (0-0.4); EOSINOPHILS % (AUTO) 1 % (1-7); LYMPHOCYTES # (AUTO) 1.13 x10^3/uL (1-3.4); LYMPHOCYTES % (AUTO) 9 % (22-44); MD NO; MEAN CORPUSCULAR HEMOGLOBIN 30.7 pg (27.5-34.5); MEAN CORPUSCULAR VOLUME 90.1 fL (81-97); MEAN PLATELET VOLUME 8.1 fL (7.4-10.4); MONOCYTES # (AUTO) 1.39 x10^3/uL (0.2-0.8); MONOCYTES % (AUTO) 11 % (2-9); NEUTROPHILS # (AUTO) 9.99 x10^3/uL (1.8-6.8); NEUTROPHILS % (AUTO) 79 % (42-75); PLATELET COUNT 290 x10^3/uL (130-400); RED BLOOD COUNT 3.27 x10^6/uL (4.38-5.82); RED CELL DISTRIBUTION WIDTH 14.9 % (9.4-14.8)
[2018-04-17 04:23] LABS: ANION GAP 8 mmol/L (5-15); CALCIUM 8.5 mg/dL (8.5-10.1); CHLORIDE 100 mmol/L (98-107); CREATININE 0.97 mg/dL (0.7-1.3)
[2018-04-17] MEDS: ONDANSETRON 2MG/ML, 2ML IVPush PRN (04:27)
[2018-04-17] MEDS: HEPARIN 5,000 UNITS/ML, 1ML IV PRN (05:06)
[2018-04-17] MEDS: CARVEDILOL 3.125 MG TABLET PO SCH ×2 (05:06→17:06)
[2018-04-17] MEDS: LEVOTHYROXINE 100 MCG TABLET PO SCH (05:06)
[2018-04-17 06:00] VITALS: BP 90/53
[2018-04-17] MEDS: morphine SULFATE 10 MG/ML, 1ML IVPush PRN (07:31)
[2018-04-17] MEDS: INSULIN LISPRO 100 UNITS/ML, PEN SQ-INSULIN SCH ×4 (07:39→20:40)
[2018-04-17] MEDS: LISINOPRIL 5 MG TABLET PO SCH (09:00)
[2018-04-17] MEDS: ASPIRIN 81 MG TABLET EC PO SCH (09:27)
[2018-04-17] MEDS: TICAGRELOR 90 MG TABLET PO SCH ×2 (09:27→20:43)
[2018-04-17] MEDS ORDERED: SODIUM CHLORIDE 0.9% 1,000 ML IV ONE (10:17)
[2018-04-17] MEDS ORDERED: BIVALIRUDIN 250 MG ONE ×2 (11:46→12:53)
[2018-04-17] MEDS ORDERED: HEPARIN 1,000 UNITS/ML, 10ML ONE (11:46)
[2018-04-17] MEDS ORDERED: FENTANYL PF 100 MCG/2ML ONE ×2 (11:46→12:20)
[2018-04-17] MEDS ORDERED: MIDAZOLAM 1 MG/ML, 5ML ONE (11:46)
[2018-04-17] MEDS ORDERED: NITROGLYCERIN 5 MG/ML, 10ML ONE (11:46)
[2018-04-17] MEDS ORDERED: VERAPAMIL 2.5 MG/ML, 2ML ONE (11:46)
[2018-04-17] MEDS ORDERED: TICAGRELOR 90 MG TABLET ONE (11:46)
[2018-04-17] MEDS ORDERED: LIDOCAINE-MPF 2%, 2ML ONE (11:47)
[2018-04-17] MEDS ORDERED: DIPHENHYDRAMINE 50 MG/ML, 1ML ONE (12:05)
[2018-04-17] MEDS ORDERED: PHENYLEPHRINE 10 MG/ML ONE (12:27)
[2018-04-17] MEDS ORDERED: BIVALIRUDIN 250 MG in DEXTROSE 5% 50 ML IV SCH (12:55)
[2018-04-17] MEDS: ATORVASTATIN 80 MG TABLET PO SCH (20:43)
[2018-04-17] MEDS: NICOTINE 14MG/24 HR PATCH.TD24 TD SCH (20:44)
[2018-04-17] MEDS: ACETAMINOPHEN 325 MG TABLET PO PRN (23:33)
[2018-04-18] MEDS: HYDROcodone/APAP 10/325 MG TABLET PO PRN (03:46)
[2018-04-18 04:34] LABS: MEAN CORPUSCULAR HEMOGLOBIN 30.1 pg (27.5-34.5); MEAN CORPUSCULAR HGB CONC 33.5 g/dL (33.2-36.2); MEAN CORPUSCULAR VOLUME 89.6 fL (81-97); MEAN PLATELET VOLUME 8.2 fL (7.4-10.4); PLATELET COUNT 251 x10^3/uL (130-400); RED BLOOD COUNT 2.89 x10^6/uL (4.38-5.82); RED CELL DISTRIBUTION WIDTH 14.7 % (9.4-14.8)
[2018-04-18 04:36] LABS: ANION GAP 7 mmol/L (5-15); CALCIUM 8.6 mg/dL (8.5-10.1); CHLORIDE 102 mmol/L (98-107); CREATININE 0.91 mg/dL (0.7-1.3)
[2018-04-18 04:37] LABS: ALANINE AMINOTRANSFERASE 57 U/L (12-78); ALBUMIN 3.5 g/dL (3.4-5.0)
[2018-04-18 04:39] LABS: ALKALINE PHOSPHATASE 52 U/L (45-117); BILIRUBIN,TOTAL 1.8 mg/dL (0.2-1.0); TOTAL PROTEIN 7.1 g/dL (6.4-8.2)
[2018-04-18 04:42] LABS: BASOPHILS % (AUTO) 0 % (0-1); EOSINOPHILS # (AUTO) 0.05 x10^3/uL (0-0.4); EOSINOPHILS % (AUTO) 0 % (1-7); LYMPHOCYTES # (AUTO) 1.04 x10^3/uL (1-3.4); LYMPHOCYTES % (AUTO) 6 % (22-44); MD SCAN; MONOCYTES # (AUTO) 1.77 x10^3/uL (0.2-0.8); MONOCYTES % (AUTO) 11 % (2-9); NEUTROPHILS % (AUTO) 83 % (42-75)
[2018-04-18 06:20] VITALS: BP 107/86
[2018-04-18] MEDS: LEVOTHYROXINE 100 MCG TABLET PO SCH (06:22)
[2018-04-18] MEDS: CARVEDILOL 3.125 MG TABLET PO SCH ×2 (06:22→16:33)
[2018-04-18] MEDS: INSULIN LISPRO 100 UNITS/ML, PEN SQ-INSULIN SCH ×4 (07:00→20:31)
[2018-04-18] MEDS: ASPIRIN 81 MG TABLET EC PO SCH (08:11)
[2018-04-18] MEDS: LISINOPRIL 5 MG TABLET PO SCH (08:12)
[2018-04-18] MEDS: TICAGRELOR 90 MG TABLET PO SCH ×2 (08:12→20:11)
[2018-04-18] MEDS ORDERED: KETOROLAC 30 MG/1 ML IM PRN (10:00)
[2018-04-18 14:15] VITALS: BP 95/63
[2018-04-18] MEDS: ONDANSETRON 2MG/ML, 2ML IVPush PRN (19:18)
[2018-04-18 19:44] VITALS: BP 80/50
[2018-04-18 19:54] VITALS: BP 87/48
[2018-04-18] MEDS ORDERED: SODIUM CHLORIDE 0.9% 250 ML IV ONE (20:00)
[2018-04-18] MEDS: ATORVASTATIN 80 MG TABLET PO SCH (20:11)
[2018-04-18] MEDS: NICOTINE 14MG/24 HR PATCH.TD24 TD SCH (20:25)
[2018-04-18] MEDS ORDERED: KETOROLAC 30 MG/1 ML IV PRN (22:00)
[2018-04-18 22:59] VITALS: BP 93/41
[2018-04-19] VITALS (11 sets, daily range): BP systolic 92–132; BP diastolic 58–88
[2018-04-19] MEDS: ONDANSETRON 2MG/ML, 2ML IVPush PRN ×3 (01:16→14:31)
[2018-04-19] MEDS: HYDROcodone/APAP 10/325 MG TABLET PO PRN (01:16)
[2018-04-19] MEDS: CARVEDILOL 3.125 MG TABLET PO SCH ×2 (04:56→18:21)
[2018-04-19] MEDS: LEVOTHYROXINE 100 MCG TABLET PO SCH (05:00)
[2018-04-19 05:54] LABS: CHLORIDE 98 mmol/L (98-107)
[2018-04-19 06:06] LABS: MEAN CORPUSCULAR HEMOGLOBIN 31.1 pg (27.5-34.5); MEAN CORPUSCULAR HGB CONC 34.3 g/dL (33.2-36.2); MEAN CORPUSCULAR VOLUME 90.6 fL (81-97); MEAN PLATELET VOLUME 8.6 fL (7.4-10.4); PLATELET COUNT 207 x10^3/uL (130-400); RED BLOOD COUNT 2.51 x10^6/uL (4.38-5.82); RED CELL DISTRIBUTION WIDTH 15.3 % (9.4-14.8)
[2018-04-19 06:07] LABS: ALANINE AMINOTRANSFERASE 63 U/L (12-78); ALBUMIN 3.3 g/dL (3.4-5.0); ALKALINE PHOSPHATASE 68 U/L (45-117); ANION GAP 10 mmol/L (5-15); BILIRUBIN,TOTAL 2.1 mg/dL (0.2-1.0); CALCIUM 8.1 mg/dL (8.5-10.1); CREATININE 1.49 mg/dL (0.7-1.3); TOTAL PROTEIN 7.3 g/dL (6.4-8.2)
[2018-04-19 06:21] LABS: BASOPHILS # (AUTO) 0.01 x10^3/uL (0-0.1); BASOPHILS % (AUTO) 0 % (0-1); EOSINOPHILS # (AUTO) 0.04 x10^3/uL (0-0.4); EOSINOPHILS % (AUTO) 0 % (1-7); LYMPHOCYTES # (AUTO) 1.14 x10^3/uL (1-3.4); LYMPHOCYTES % (AUTO) 7 % (22-44); MD SCAN; MONOCYTES # (AUTO) 1.56 x10^3/uL (0.2-0.8); MONOCYTES % (AUTO) 10 % (2-9); NEUTROPHILS # (AUTO) 12.89 x10^3/uL (1.8-6.8); NEUTROPHILS % (AUTO) 82 % (42-75)
[2018-04-19 06:55] LABS: INTERNATIONAL NORMALIZED RATIO 1.1 (0.93-1.1); PROTHROMBIN TIME 11.3 Seconds (9.6-11.5)
[2018-04-19] MEDS: INSULIN LISPRO 100 UNITS/ML, PEN SQ-INSULIN SCH ×4 (07:00→21:32)
[2018-04-19 08:07] LABS: BASOPHILS # (AUTO) 0.01 x10^3/uL (0-0.1); BASOPHILS % (AUTO) 0 % (0-1); EOSINOPHILS # (AUTO) 0.02 x10^3/uL (0-0.4); EOSINOPHILS % (AUTO) 0 % (1-7); LYMPHOCYTES # (AUTO) 0.93 x10^3/uL (1-3.4); LYMPHOCYTES % (AUTO) 6 % (22-44); MD NO; MEAN CORPUSCULAR HEMOGLOBIN 30.2 pg (27.5-34.5); MEAN CORPUSCULAR HGB CONC 33.7 g/dL (33.2-36.2); MEAN CORPUSCULAR VOLUME 89.6 fL (81-97); MEAN PLATELET VOLUME 8.8 fL (7.4-10.4); MONOCYTES # (AUTO) 1.22 x10^3/uL (0.2-0.8); MONOCYTES % (AUTO) 8 % (2-9); NEUTROPHILS # (AUTO) 13.51 x10^3/uL (1.8-6.8); NEUTROPHILS % (AUTO) 86 % (42-75); PLATELET COUNT 238 x10^3/uL (130-400); RED BLOOD COUNT 2.63 x10^6/uL (4.38-5.82); RED CELL DISTRIBUTION WIDTH 14.9 % (9.4-14.8)
[2018-04-19] MEDS: TICAGRELOR 90 MG TABLET PO SCH ×2 (08:25→21:32)
[2018-04-19] MEDS: LISINOPRIL 5 MG TABLET PO SCH (08:36)
[2018-04-19] MEDS: ACETAMINOPHEN 325 MG TABLET PO PRN (10:41)
[2018-04-19 14:16] LABS: OSMOLALITY,URINE 677 mOsm/kg (500-850)
[2018-04-19] MEDS: PROCHLORPERAZINE 5 MG/ML, 2ML IV PRN (15:58)
[2018-04-19] MEDS ORDERED: DEXTROSE 50%, 50ML SYRINGE IVPush PRN (16:00)
[2018-04-19] MEDS ORDERED: GLUCAGON 1 MG IM PRN (16:00)
[2018-04-19] MEDS ORDERED: DEXTROSE 4 GM TAB.CHEW PO PRN (16:00)
[2018-04-19 19:30] LABS: BASOPHILS # (AUTO) 0.01 x10^3/uL (0-0.1); BASOPHILS % (AUTO) 0 % (0-1); EOSINOPHILS # (AUTO) 0.06 x10^3/uL (0-0.4); EOSINOPHILS % (AUTO) 0 % (1-7); LYMPHOCYTES # (AUTO) 1.33 x10^3/uL (1-3.4); LYMPHOCYTES % (AUTO) 8 % (22-44); MEAN CORPUSCULAR HEMOGLOBIN 30.5 pg (27.5-34.5); MEAN CORPUSCULAR HGB CONC 34.3 g/dL (33.2-36.2); MEAN CORPUSCULAR VOLUME 88.8 fL (81-97); MEAN PLATELET VOLUME 9.4 fL (7.4-10.4); MONOCYTES # (AUTO) 1.45 x10^3/uL (0.2-0.8); MONOCYTES % (AUTO) 9 % (2-9); NEUTROPHILS # (AUTO) 13.23 x10^3/uL (1.8-6.8); NEUTROPHILS % (AUTO) 82 % (42-75); PLATELET COUNT 232 x10^3/uL (130-400); RED BLOOD COUNT 3.27 x10^6/uL (4.38-5.82)
[2018-04-19 19:32] LABS: MD NO
[2018-04-19 19:34] LABS: ABSOLUTE RETICS # 0.073 x10^6/uL (0.5-1.5); RED BLOOD COUNT 3.29 x10^6/uL (4.38-5.82); RETICULOCYTE COUNT % 2.22 % (0.5-1.5)
[2018-04-19 19:37] LABS: ANION GAP 8 mmol/L (5-15); CALCIUM 8.4 mg/dL (8.5-10.1); CHLORIDE 96 mmol/L (98-107); CREATININE 1.79 mg/dL (0.7-1.3)
[2018-04-19] MEDS: SODIUM CHLORIDE FLUSH 10ML SYR IVF SCH (21:00)
[2018-04-19] MEDS: ATORVASTATIN 80 MG TABLET PO SCH (21:32)
[2018-04-19] MEDS: NICOTINE 14MG/24 HR PATCH.TD24 TD SCH (21:36)
[2018-04-20 00:22] VITALS: BP 91/53
[2018-04-20] MEDS ORDERED: TRAZODONE 50MG TABLET PO ONE (02:00)
[2018-04-20 05:22] VITALS: BP 116/78
[2018-04-20] MEDS: CARVEDILOL 3.125 MG TABLET PO SCH (05:29)
[2018-04-20] MEDS: LEVOTHYROXINE 100 MCG TABLET PO SCH (05:30)
[2018-04-20] MEDS: ONDANSETRON 2MG/ML, 2ML IVPush PRN (05:35)
[2018-04-20 06:09] LABS: BASOPHILS # (AUTO) 0.04 x10^3/uL (0-0.1); BASOPHILS % (AUTO) 0 % (0-1); EOSINOPHILS # (AUTO) 0.03 x10^3/uL (0-0.4); EOSINOPHILS % (AUTO) 0 % (1-7); LYMPHOCYTES # (AUTO) 1.47 x10^3/uL (1-3.4); LYMPHOCYTES % (AUTO) 9 % (22-44); MD NO; MEAN CORPUSCULAR HEMOGLOBIN 30.2 pg (27.5-34.5); MEAN CORPUSCULAR HGB CONC 34.7 g/dL (33.2-36.2); MEAN CORPUSCULAR VOLUME 87.3 fL (81-97); MEAN PLATELET VOLUME 9.1 fL (7.4-10.4); MONOCYTES # (AUTO) 1.06 x10^3/uL (0.2-0.8); MONOCYTES % (AUTO) 7 % (2-9); NEUTROPHILS # (AUTO) 12.91 x10^3/uL (1.8-6.8); NEUTROPHILS % (AUTO) 83 % (42-75); PLATELET COUNT 237 x10^3/uL (130-400); RED BLOOD COUNT 3.25 x10^6/uL (4.38-5.82); RED CELL DISTRIBUTION WIDTH 15.3 % (9.4-14.8)
[2018-04-20 06:19] LABS: ALBUMIN 3.4 g/dL (3.4-5.0); ANION GAP 9 mmol/L (5-15); CALCIUM 8.2 mg/dL (8.5-10.1); CHLORIDE 97 mmol/L (98-107)
[2018-04-20 06:37] LABS: ALANINE AMINOTRANSFERASE 1418 U/L (12-78); ALKALINE PHOSPHATASE 107 U/L (45-117); BILIRUBIN,TOTAL 3.3 mg/dL (0.2-1.0); TOTAL PROTEIN 7.5 g/dL (6.4-8.2)
[2018-04-20 06:54] LABS: FREE T4 (FREE THYROXINE) 1.39 ng/dL (0.76-1.46)
[2018-04-20 07:03] VITALS: BP 96/74
[2018-04-20] MEDS: PROCHLORPERAZINE 5 MG/ML, 2ML IV PRN (08:49)
[2018-04-20] MEDS: SODIUM CHLORIDE FLUSH 10ML SYR IVF SCH ×2 (08:50→21:22)
[2018-04-20] MEDS: INSULIN LISPRO 100 UNITS/ML, PEN SQ-INSULIN SCH ×4 (08:50→21:36)
[2018-04-20] MEDS: CLOPIDOGREL 300 MG TABLET PO ONE ×2 (10:08→11:39)
[2018-04-20 10:21] VITALS: BP 108/74
[2018-04-20 10:28] VITALS: BP 103/69
[2018-04-20] MEDS ORDERED: PANTOPRAZOLE 80 MG in SODIUM CHLORIDE 0.9% 50 ML IV ONE (10:30)
[2018-04-20] MEDS: PANTOPRAZOLE 80 MG in SODIUM CHLORIDE 0.9% 100 ML IV SCH ×2 (10:46→22:09)
[2018-04-20 10:49] VITALS: BP 92/57
[2018-04-20 10:54] LABS: BASOPHILS # (AUTO) 0.17 x10^3/uL (0-0.1); BASOPHILS % (AUTO) 1 % (0-1); EOSINOPHILS % (AUTO) 1 % (1-7); LYMPHOCYTES % (AUTO) 8 % (22-44); MD NO; MEAN CORPUSCULAR HEMOGLOBIN 30.7 pg (27.5-34.5); MEAN CORPUSCULAR HGB CONC 34.7 g/dL (33.2-36.2); MEAN CORPUSCULAR VOLUME 88.4 fL (81-97); MEAN PLATELET VOLUME 9.3 fL (7.4-10.4); MONOCYTES # (AUTO) 1.06 x10^3/uL (0.2-0.8); MONOCYTES % (AUTO) 7 % (2-9); NEUTROPHILS # (AUTO) 13.42 x10^3/uL (1.8-6.8); NEUTROPHILS % (AUTO) 84 % (42-75); PLATELET COUNT 232 x10^3/uL (130-400); RED BLOOD COUNT 2.87 x10^6/uL (4.38-5.82); RED CELL DISTRIBUTION WIDTH 15.3 % (9.4-14.8)
[2018-04-20] MEDS: SODIUM CHLORIDE 0.9% 1,000 ML IV SCH (12:04)
[2018-04-20] MEDS ORDERED: FENTANYL PF 100 MCG/2ML ONE (13:23)
[2018-04-20] MEDS ORDERED: MIDAZOLAM 1 MG/ML, 5ML ONE ×2 (13:23→18:00)
[2018-04-20] MEDS ORDERED: NOREPINEPHRINE 4 MG in SODIUM CHLORIDE 0.9% 246 ML IV PRN ×2 (13:30→14:18)
[2018-04-20] MEDS ORDERED: SODIUM CHLORIDE 0.9%, 500ML IVBOLUS ONE (13:30)
[2018-04-20] MEDS ORDERED: NOREPINEPHRINE 1 MG/ML, 4ML ONE (13:30)
[2018-04-20] MEDS ORDERED: LACTULOSE 20 GM/30 ML UDC NG PRN (14:30)
[2018-04-20] MEDS ORDERED: LIDOCAINE-MPF 1%, 2ML ENDO PRN (14:30)
[2018-04-20] MEDS ORDERED: SODIUM CHLORIDE 0.9% 1,000ML IV SCH (14:30)
[2018-04-20] MEDS ORDERED: PHARMACY MAY ADJ FOR RENAL FX MC SCH (14:30)
[2018-04-20] MEDS ORDERED: SENNA/DOCUSATE TABLET NG PRN (14:30)
[2018-04-20] MEDS ORDERED: SENNOSIDES 8.8 MG/5 ML ORAL SOL NG PRN (14:30)
[2018-04-20] MEDS ORDERED: BISACODYL 10 MG SUPP PR PRN (14:30)
[2018-04-20] MEDS ORDERED: EPINEPHRINE SYRINGE 0.1 MG/ML, 10ML ONE (15:10)
[2018-04-20 16:06] LABS: MEAN CORPUSCULAR HEMOGLOBIN 29.7 pg (27.5-34.5); MEAN CORPUSCULAR HGB CONC 34.2 g/dL (33.2-36.2); MEAN PLATELET VOLUME 8.8 fL (7.4-10.4); PLATELET COUNT 247 x10^3/uL (130-400); RED BLOOD COUNT 3.38 x10^6/uL (4.38-5.82); RED CELL DISTRIBUTION WIDTH 15.9 % (9.4-14.8)
[2018-04-20] MEDS ORDERED: ROCURONIUM 10 MG/ML,10ML ONE (18:00)
[2018-04-20] MEDS ORDERED: PROPOFOL 10 MG/ML, 100ML IV ONE (18:00)
[2018-04-20] MEDS: ALBUTEROL/IPRATROPIUM 2.5MG/0.5MG, 3 ML INLINE SCH ×2 (18:56→22:32)
[2018-04-20 20:25] LABS: MEAN CORPUSCULAR HEMOGLOBIN 29.2 pg (27.5-34.5); MEAN CORPUSCULAR HGB CONC 34.2 g/dL (33.2-36.2); MEAN CORPUSCULAR VOLUME 85.3 fL (81-97); MEAN PLATELET VOLUME 9.1 fL (7.4-10.4); PLATELET COUNT 240 x10^3/uL (130-400); RED BLOOD COUNT 3.44 x10^6/uL (4.38-5.82); RED CELL DISTRIBUTION WIDTH 15.9 % (9.4-14.8)
[2018-04-20] MEDS ORDERED: PROPOFOL 100 ML IV ONE (21:20)
[2018-04-20] MEDS: NICOTINE 14MG/24 HR PATCH.TD24 TD SCH (21:22)
[2018-04-21] MEDS: ALBUTEROL/IPRATROPIUM 2.5MG/0.5MG, 3 ML INLINE SCH ×6 (02:38→19:15)
[2018-04-21] MEDS: LEVOTHYROXINE 125 MCG TABLET PO SCH (03:03)
[2018-04-21 03:20] LABS: MEAN CORPUSCULAR HGB CONC 33.9 g/dL (33.2-36.2); MEAN CORPUSCULAR VOLUME 85.4 fL (81-97); MEAN PLATELET VOLUME 8.9 fL (7.4-10.4); PLATELET COUNT 250 x10^3/uL (130-400); RED BLOOD COUNT 3.51 x10^6/uL (4.38-5.82); RED CELL DISTRIBUTION WIDTH 16.5 % (9.4-14.8)
[2018-04-21] MEDS: SODIUM CHLORIDE 0.9% 1,000 ML IV SCH ×2 (03:50→20:48)
[2018-04-21] MEDS: PROPOFOL 100 ML IV PRN ×2 (03:50→14:36)
[2018-04-21 06:01] LABS: BASOPHILS # (AUTO) 0.02 x10^3/uL (0-0.1); BASOPHILS % (AUTO) 0 % (0-1); EOSINOPHILS # (AUTO) 0.13 x10^3/uL (0-0.4); EOSINOPHILS % (AUTO) 1 % (1-7); LYMPHOCYTES # (AUTO) 1.08 x10^3/uL (1-3.4); LYMPHOCYTES % (AUTO) 9 % (22-44); MD NO; MEAN CORPUSCULAR HEMOGLOBIN 29.3 pg (27.5-34.5); MEAN CORPUSCULAR HGB CONC 34.3 g/dL (33.2-36.2); MEAN CORPUSCULAR VOLUME 85.3 fL (81-97); MONOCYTES # (AUTO) 1.16 x10^3/uL (0.2-0.8); MONOCYTES % (AUTO) 9 % (2-9); NEUTROPHILS # (AUTO) 10.22 x10^3/uL (1.8-6.8); NEUTROPHILS % (AUTO) 81 % (42-75); PLATELET COUNT 227 x10^3/uL (130-400); RED BLOOD COUNT 3.29 x10^6/uL (4.38-5.82); RED CELL DISTRIBUTION WIDTH 16.5 % (9.4-14.8)
[2018-04-21 06:12] LABS: CHLORIDE 103 mmol/L (98-107)
[2018-04-21 06:39] LABS: ALANINE AMINOTRANSFERASE 1357 U/L (12-78); ALBUMIN 3.1 g/dL (3.4-5.0); ALKALINE PHOSPHATASE 152 U/L (45-117); ANION GAP 10 mmol/L (5-15); BILIRUBIN,TOTAL 2.6 mg/dL (0.2-1.0); CALCIUM 7.6 mg/dL (8.5-10.1); CREATININE 1.04 mg/dL (0.7-1.3); TOTAL IRON BINDING CAPACITY 268 mcg/dL (250-450); TOTAL PROTEIN 6.6 g/dL (6.4-8.2)
[2018-04-21 06:45] LABS: % IRON SATURATION 25 % (20-55); IRON LEVEL 68 mcg/dL (65-175)
[2018-04-21 08:06] LABS: MEAN CORPUSCULAR HEMOGLOBIN 29.1 pg (27.5-34.5); MEAN CORPUSCULAR VOLUME 85.5 fL (81-97); MEAN PLATELET VOLUME 8.9 fL (7.4-10.4); PLATELET COUNT 227 x10^3/uL (130-400); RED BLOOD COUNT 3.51 x10^6/uL (4.38-5.82); RED CELL DISTRIBUTION WIDTH 16.3 % (9.4-14.8)
[2018-04-21] MEDS: INSULIN LISPRO 100 UNITS/ML, PEN SQ-INSULIN SCH ×4 (08:16→21:06)
[2018-04-21] MEDS: SODIUM CHLORIDE FLUSH 10ML SYR IVF SCH ×2 (09:00→21:04)
[2018-04-21] MEDS ORDERED: CLOPIDOGREL 75 MG TABLET PO SCH ×2 (09:00→17:00)
[2018-04-21] MEDS ORDERED: CLOPIDOGREL 300 MG TABLET ONE (09:25)
[2018-04-21] MEDS ORDERED: CLOPIDOGREL 300 MG TABLET PO ONE (09:30)
[2018-04-21] MEDS: FENTANYL PF 100 MCG/2ML IVPush PRN ×3 (11:04→22:42)
[2018-04-21] MEDS: PANTOPRAZOLE 80 MG in SODIUM CHLORIDE 0.9% 100 ML IV SCH ×2 (11:37→21:04)
[2018-04-21] MEDS: AMPICILLIN/SULBACTAM 3 GM in SODIUM CHLORIDE 0.9% 100 ML IV SCH ×3 (11:41→22:12)
[2018-04-21 14:44] LABS: MEAN CORPUSCULAR HGB CONC 33.7 g/dL (33.2-36.2); MEAN PLATELET VOLUME 8.9 fL (7.4-10.4); PLATELET COUNT 182 x10^3/uL (130-400); RED BLOOD COUNT 3.31 x10^6/uL (4.38-5.82); RED CELL DISTRIBUTION WIDTH 16.4 % (9.4-14.8)
[2018-04-21] MEDS ORDERED: DEXMEDETOMIDINE 1,000 MCG in SODIUM CHLORIDE 0.9% 240 ML IV PRN (15:30)
[2018-04-21 20:22] LABS: MEAN CORPUSCULAR HEMOGLOBIN 29.7 pg (27.5-34.5); MEAN CORPUSCULAR HGB CONC 34.1 g/dL (33.2-36.2); MEAN CORPUSCULAR VOLUME 87.1 fL (81-97); MEAN PLATELET VOLUME 9.4 fL (7.4-10.4); PLATELET COUNT 175 x10^3/uL (130-400); RED BLOOD COUNT 3.33 x10^6/uL (4.38-5.82); RED CELL DISTRIBUTION WIDTH 16.5 % (9.4-14.8)
[2018-04-21] MEDS ORDERED: ACETAMINOPHEN 650 MG/20.3 ML UDC PO PRN (20:30)
[2018-04-21] MEDS: NICOTINE 14MG/24 HR PATCH.TD24 TD SCH (21:14)
[2018-04-21] MEDS ORDERED: LACTULOSE 20 GM/30 ML UDC PO SCH (23:30)
[2018-04-22] MEDS ORDERED: HALOPERIDOL 5 MG/ML ONE (00:27)
[2018-04-22] MEDS ORDERED: HALOPERIDOL 5 MG/ML IM PRN (00:30)
[2018-04-22 02:30] LABS: MEAN CORPUSCULAR HGB CONC 32.3 g/dL (33.2-36.2); MEAN CORPUSCULAR VOLUME 89.7 fL (81-97); PLATELET COUNT 150 x10^3/uL (130-400); RED BLOOD COUNT 3.81 x10^6/uL (4.38-5.82); RED CELL DISTRIBUTION WIDTH 17.4 % (9.4-14.8)
[2018-04-22] MEDS: SODIUM CHLORIDE 0.9% 1,000 ML IV SCH (03:04)
[2018-04-22 05:00] VITALS: BP 140/118
[2018-04-22] MEDS ORDERED: MIDAZOLAM 1 MG/ML, 5ML ONE (05:00)
[2018-04-22] MEDS ORDERED: VASOPRESSIN 100 UNIT in SODIUM CHLORIDE 0.9% 495 ML IV PRN (05:30)
[2018-04-22] MEDS: LEVOTHYROXINE 125 MCG TABLET PO SCH (06:00)
[2018-04-22 06:15] LABS: MEAN CORPUSCULAR HEMOGLOBIN 29.2 pg (27.5-34.5); MEAN CORPUSCULAR HGB CONC 33.2 g/dL (33.2-36.2); MEAN PLATELET VOLUME 9.5 fL (7.4-10.4); PLATELET COUNT 149 x10^3/uL (130-400); RED BLOOD COUNT 3.81 x10^6/uL (4.38-5.82); RED CELL DISTRIBUTION WIDTH 17.3 % (9.4-14.8)
[2018-04-22] MEDS: PANTOPRAZOLE 80 MG in SODIUM CHLORIDE 0.9% 100 ML IV SCH (06:33)
[2018-04-22] MEDS ORDERED: NOREPINEPHRINE 1 MG/ML, 4ML ONE (06:34)
[2018-04-22] MEDS: AMPICILLIN/SULBACTAM 3 GM in SODIUM CHLORIDE 0.9% 100 ML IV SCH ×2 (06:34→09:06)
[2018-04-22] MEDS: INSULIN LISPRO 100 UNITS/ML, PEN SQ-INSULIN SCH (07:00)
[2018-04-22] MEDS ORDERED: VECURONIUM 10 MG ONE (07:21)
[2018-04-22] MEDS ORDERED: SODIUM BICARB 8.4%, 50ML SYRINGE ONE (07:21)
[2018-04-22] MEDS ORDERED: EPINEPHRINE 1 MG/ML, 1ML ONE (07:25)
[2018-04-22] MEDS ORDERED: SODIUM BICARBONATE 8.4% 150 MEQ in DEXTROSE 5% 1,000 ML IV ONE (07:29)
[2018-04-22] MEDS ORDERED: SODIUM BICARB 8.4%, 50ML SYRINGE IVPush STA (07:29)
[2018-04-22] MEDS ORDERED: EPINEPHRINE 2 MG in SODIUM CHLORIDE 0.9% 248 ML IV ONE (07:29)
[2018-04-22 07:30] LABS: MD YES
[2018-04-22] MEDS ORDERED: VECURONIUM 10 MG IVPush ONE (07:30)
[2018-04-22] MEDS ORDERED: SODIUM BICARB 8.4%, 50ML SYRINGE IVPush ONE ×3 (07:30→08:00)
[2018-04-22 07:31] LABS: BAND#(MANUAL) 1.62 x10^3/uL; BANDS%(MANUAL) 8 % (0-7); LYMPH#(MANUAL) 2.02 x10^3/uL (1-3.4); LYMPHS% (MANUAL) 10 % (22-44); SEG#(MANUAL) 13.53 x10^3/uL (1.8-6.8); SEGS% (MANUAL) 67 % (42-75)
[2018-04-22 07:32] LABS: ANISOCYTOSIS 1+; EOS% (MANUAL) 1 % (1-7); METAMYELOCYTES# (MANUAL) 0.61 x10^3/uL (0-0); METAMYELOCYTES% (MANUAL) 3 % (0-1); MONOS#(MANUAL) 2.22 x10^3/uL (0.3-2.7); MONOS% (MANUAL) 11 % (2-9); NRBC % (MANUAL) 3 % (0-1)
[2018-04-22 07:33] LABS: ECHINOCYTES 1+; OVALOCYTES 1+; POLYCHROMASIA 1+
[2018-04-22] MEDS ORDERED: VECURONIUM 10 MG IVPush STA (07:33)
[2018-04-22 07:34] LABS: <PLATELET ESTIMATE> ADEQUATE; <PLT MORPHOLOGY> NORMAL PLT MORPH
[2018-04-22] MEDS: EPINEPHRINE 2 MG in SODIUM CHLORIDE 0.9% 248 ML IV PRN ×2 (07:37→07:50)
[2018-04-22] MEDS ORDERED: SODIUM BICARBONATE 8.4% 150 MEQ in DEXTROSE 5% 1,000 ML IV SCH (08:00)
[2018-04-22 10:50] LABS: ALBUMIN 2.8 g/dL (3.4-5.0); ANION GAP 26 mmol/L (5-15); CHLORIDE 105 mmol/L (98-107); CREATININE 2.46 mg/dL (0.7-1.3)
[2018-04-22 11:00] LABS: ALKALINE PHOSPHATASE 235 U/L (45-117); BILIRUBIN,TOTAL 4.5 mg/dL (0.2-1.0); TOTAL PROTEIN 6.2 g/dL (6.4-8.2)
[2018-04-22 11:05] LABS: MEAN CORPUSCULAR HEMOGLOBIN 29.1 pg (27.5-34.5); MEAN CORPUSCULAR HGB CONC 33.4 g/dL (33.2-36.2); MEAN CORPUSCULAR VOLUME 86.9 fL (81-97); MEAN PLATELET VOLUME 9.7 fL (7.4-10.4); PLATELET COUNT 152 x10^3/uL (130-400); RED BLOOD COUNT 3.66 x10^6/uL (4.38-5.82); RED CELL DISTRIBUTION WIDTH 16.8 % (9.4-14.8)
[2018-04-22 11:06] LABS: ALANINE AMINOTRANSFERASE 4310 U/L (12-78)
[2018-04-22] MEDS ORDERED: morphine SULFATE 10 MG/ML, 1ML IVPush PRN ×2 (12:00)
[2018-04-22] MEDS ORDERED: ATROPINE OPHTH SOLN 1%, 5ML PO PRN (12:00)
[2018-04-22] MEDS ORDERED: LORazepam 2 MG/ML, 1ML IVPush PRN ×2 (12:00)
== END 2018-04-22 17:00 | disposition expired | DRG 250 ==
LOC: ED 04:00 → EDIP 04:01 → 5SO 08:01 → CCU 12:13 → 5SO 04-18 15:32 → CCU 04-20 12:18
PROVIDERS: ADMIT Internal Medicine; ATTEND Internal Medicine
PROC: 02703ZZ Dilation of Coronary Artery, One Artery, Percutaneous Approach (ICD-10-PCS; principal; 2018-04-17)
PROC: 4A023N7 Measurement of Cardiac Sampling and Pressure, Left Heart, Percutaneous Approach (ICD-10-PCS; 2018-04-17)
PROC: B2111ZZ Fluoroscopy of Multiple Coronary Arteries using Low Osmolar Contrast (ICD-10-PCS; 2018-04-17)
PROC: 0BH17EZ Insertion of Endotracheal Airway into Trachea, Via Natural or Artificial Opening (ICD-10-PCS; 2018-04-20)
PROC: 0W3P8ZZ Control Bleeding in Gastrointestinal Tract, Via Natural or Artificial Opening Endoscopic (ICD-10-PCS; 2018-04-20)
PROC: 3E0G8GC Introduction of Other Therapeutic Substance into Upper GI, Via Natural or Artificial Opening Endoscopic (ICD-10-PCS; 2018-04-20)
PROC: 5A1945Z Respiratory Ventilation, 24-96 Consecutive Hours (ICD-10-PCS; 2018-04-20)
PROC: 30233N1 Transfusion of Nonautologous Red Blood Cells into Peripheral Vein, Percutaneous Approach (ICD-10-PCS; 2018-04-20)
PROC: 30233R1 Transfusion of Nonautologous Platelets into Peripheral Vein, Percutaneous Approach (ICD-10-PCS; 2018-04-20)
PROC: 30233L1 Transfusion of Nonautologous Fresh Plasma into Peripheral Vein, Percutaneous Approach (ICD-10-PCS; 2018-04-20)
PROC: 30233K1 Transfusion of Nonautologous Frozen Plasma into Peripheral Vein, Percutaneous Approach (ICD-10-PCS; 2018-04-20)
PROC: 4A133BC Monitoring of Arterial Pressure, Coronary, Percutaneous Approach (ICD-10-PCS; 2018-04-22)
DX: T82.867A Thrombosis due to cardiac prosthetic devices, implants and grafts, initial encounter (principal); I21.4 Non-ST elevation (NSTEMI) myocardial infarction; I50.43 Acute on chronic combined systolic (congestive) and diastolic (congestive) heart failure; J96.00 Acute respiratory failure, unspecified whether with hypoxia or hypercapnia; D62 Acute posthemorrhagic anemia; E87.1 Hypo-osmolality and hyponatremia; E87.2 Acidosis; I82.611 Acute embolism and thrombosis of superficial veins of right upper extremity; N17.9 Acute kidney failure, unspecified; Z99.11 Dependence on respirator [ventilator] status; K92.2 Gastrointestinal hemorrhage, unspecified; R57.1 Hypovolemic shock; E03.9 Hypothyroidism, unspecified; E11.9 Type 2 diabetes mellitus without complications; E78.5 Hyperlipidemia, unspecified; I95.9 Hypotension, unspecified; G89.29 Other chronic pain; I11.0 Hypertensive heart disease with heart failure; I25.10 Atherosclerotic heart disease of native coronary artery without angina pectoris; I25.5 Ischemic cardiomyopathy; I48.91 Unspecified atrial fibrillation; J44.9 Chronic obstructive pulmonary disease, unspecified; K75.89 Other specified inflammatory liver diseases; K20.9 Esophagitis, unspecified; I27.20 Pulmonary hypertension, unspecified; Y92.89 Other specified places as the place of occurrence of the external cause; Y83.1 Surgical operation with implant of artificial internal device as the cause of abnormal reaction of the patient, or of later complication, without mention of misadventure at the time of the procedure; Z79.02 Long term (current) use of antithrombotics/antiplatelets; Z87.891 Personal history of nicotine dependence; Z91.19 Patient's noncompliance with other medical treatment and regimen; Z95.810 Presence of automatic (implantable) cardiac defibrillator
CPT/HCPCS: 36415; 36600; 74018; 92920; 93458; 99291; J7620; 71045; 71275; 74175; 74176; 76700; 80048; 80053; 80074; 80307; 82140; 82248; 82728; 82803; 82962; 83010; 83036; 83540; 83550; 83605; 83615; 83690; 83735; 83930; 83935; 84100; 84439; 84443; 84478; 84484; 85014; 85018; 85025; 85027; 85045; 85379; 85520; 85610; 85730; 86850; 86900; 86923; 87070; 87077; 87081; 87186; 87205; 93005; 94002; 94003; 94150; 94640; 96372; 96374; 96375; 99156; 99157; C1769; C1894; J0295; J0583; J1644; J1885; J2250; J2405; J2704; J3010; J3486; J3490; J7070; Q9967; 92928; C1725; C1887; C9113; J0171; J0780; J1200; J1630; J1815; J2060; J2270; J2370; J7030; J7040; J7050; P9016; P9017; P9035